=== PATIENT | female | born 1970 | race Caucasian/White ===

== ENCOUNTER 2017-11-03 14:07 | Emergency (ER) | payer OTHER ==
[~2017-11-03] VITALS: Ht 167.6 cm; Wt 145.2 kg
[~2017-11-03 14:07] MED LIST: AMOXICILLIN500 MG PO; HYDROCODON-ACE1 EAC8 PO; LO-OVRAL-281 EACH PO; NORCO 5-325 TA1 EACH PO; ZITHROMAX250 MG PO
[2017-11-03] MEDS ORDERED: LEVOTHYROXINE50 MCG PO (14:31)
[2017-11-03] MEDS ORDERED: CYCLOBENZAPRINE5 MG PO (16:43)
[2017-11-03] MEDS ORDERED: NORCO 5-325 TA1 EACH PO (16:43)
[2017-11-03] MEDS ORDERED: NAPROSYN500 MG PO (16:43)
[2017-11-03] MEDS ORDERED: NEURONTIN300 MG PO (16:43)
== END 2017-11-03 18:30 | disposition home or self-care (01) ==
LOC: ED 14:07
DX: M54.16 Radiculopathy, lumbar region (principal); E66.9 Obesity, unspecified; Z79.899 Other long term (current) drug therapy
CPT/HCPCS: 72100; 81001; 96372; 99283; J1885

== ENCOUNTER 2019-06-04 20:47 | Emergency (ER) | payer OTHER ==
[~2019-06-04] VITALS: Ht 167.6 cm; Wt 104.3 kg
[~2019-06-04 20:47] MED LIST changes: +CYCLOBENZAPRINE5 MG PO; +LEVOTHYROXINE50 MCG PO; +NAPROSYN500 MG PO; +NEURONTIN300 MG PO
[2019-06-04] MEDS ORDERED: LEVOTHYROXINE25 MCG PO (21:01)
[2019-06-04] MEDS ORDERED: OMEPRAZOLE20 MG PO (21:01)
[2019-06-04] MEDS ORDERED: TRAMADOL HCL50 MG PO (21:01)
[2019-06-04] MEDS ORDERED: SALSALATE500 MG PO (21:01)
[2019-06-04] MEDS ORDERED: CLINDAMYCIN HC300 MG PO (21:02)
[2019-06-05] MEDS ORDERED: BACTRIM DS TAB1 EACH PO (00:16)
[2019-06-05] MEDS ORDERED: CEPHALEXIN500 MG PO (00:16)
== END 2019-06-05 00:37 | disposition home or self-care (01) ==
LOC: ED 20:47
DX: L03.113 Cellulitis of right upper limb (principal); E03.9 Hypothyroidism, unspecified; F17.200 Nicotine dependence, unspecified, uncomplicated
CPT/HCPCS: 73130; 99283-25; A9270

== ENCOUNTER 2019-06-06 11:18 | Emergency (ER) | payer OTHER ==
[~2019-06-06] VITALS: Ht 167.6 cm; Wt 104.3 kg
[~2019-06-06 11:18] MED LIST changes: +BACTRIM DS TAB1 EACH PO; +CEPHALEXIN500 MG PO; +CLINDAMYCIN HC300 MG PO; +LEVOTHYROXINE25 MCG PO; +OMEPRAZOLE20 MG PO; +SALSALATE500 MG PO; +TRAMADOL HCL50 MG PO
--- OUTSIDE RECORDS SUMMARY | 2019-06-06 11:22 | XMS ---
PreManage Notification: BRONSON MARTÍNEZ Security Director Of Teaching And Learning Events No recent Security Events currently on file CRITERIA MET - [place] [facility] - 2 Visits in 30 Days CARE PROVIDERS There are no care providers on record at this time. Duncan has no Care Guidelines for this patient. Sanchez VISIT COUNT (12 MO.) 2 [facility] TOTAL 2 NOTE: Visits indicate total known visits. ED/C VISIT TRACKING (12 MO.) 06/06/2019 11:19 [facility] [place] TYPE: Emergency COMPLAINT: - R SWOLLEN HAND 06/04/2019 20:48 [facility] [place] TYPE: Emergency COMPLAINT: - RT SWOLLEN HAND INPATIENT VISIT TRACKING (12 MO.) No inpatient visits to display in this time frame [email or web address]
== END 2019-06-06 12:18 | disposition home or self-care (01) ==
LOC: ED 11:18
DX: L03.113 Cellulitis of right upper limb (principal); F17.200 Nicotine dependence, unspecified, uncomplicated; Z79.899 Other long term (current) drug therapy; Z79.891 Long term (current) use of opiate analgesic; E03.9 Hypothyroidism, unspecified; E66.9 Obesity, unspecified
CPT/HCPCS: 99283; A9270

== ENCOUNTER 2019-06-06 18:40 | Emergency (ER) | payer OTHER ==
[~2019-06-06] VITALS: Ht 167.6 cm; Wt 104.3 kg
--- OUTSIDE RECORDS SUMMARY | 2019-06-06 18:42 | XMS ---
PreManage Notification: BRONSON MARTÍNEZ Security Associate Art Director Events No recent Security Events currently on file CRITERIA MET - [facility] - 2 Visits in 30 Days CARE PROVIDERS There are no care providers on record at this time. Duncan has no Care Guidelines for this patient. [place] [facility] NOTE: Visits indicate total known visits. ED/C VISIT TRACKING (12 MO.) 06/06/2019 18:[facility] [place] TYPE: Emergency COMPLAINT: - VOMITING 06/06/2019 11:19 [facility] [place] TYPE: Emergency COMPLAINT: - R SWOLLEN HAND 06/04/2019 20:48 [facility] [place] TYPE: Emergency COMPLAINT: - RT SWOLLEN HAND INPATIENT VISIT TRACKING (12 MO.) No inpatient visits to display in this time frame [email or web address]
== END 2019-06-06 21:54 | disposition home or self-care (01) ==
LOC: ED 18:40
DX: L03.113 Cellulitis of right upper limb (principal); E66.9 Obesity, unspecified; E03.9 Hypothyroidism, unspecified; F17.200 Nicotine dependence, unspecified, uncomplicated; Z79.899 Other long term (current) drug therapy
CPT/HCPCS: 80053; 85025; 96365; 96366; 96375; 99283-25; J2405; J3370; J7060

== ENCOUNTER 2019-06-11 14:09 | Emergency (ER) | payer OTHER ==
[~2019-06-11] VITALS: Ht 167.6 cm; Wt 104.3 kg
--- OUTSIDE RECORDS SUMMARY | 2019-06-11 14:12 | XMS ---
PreManage Notification: BRONSON MARTÍNEZ Security Operations Research Group Manager Events No recent Security Events currently on file CRITERIA MET - [facility] - Has Care Guidelines - [facility] - 2 Visits in 30 Days CARE PROVIDERS BELTRAN DYER Physician Reliability Technician 06/07/2019-Current TRELL PHONE: [phone] Guidelines Source: [facility] [place] Guidelines Date: 06/09/2019 Care Coordination: Receiving mental health services with [facility].\T\nbsp; Please contact [facility] for mental health concerns.\T\nbsp; [place] office: \T\nbsp; [place] office: [phone]. Care History Medical/Surgical 06/07/2019 [facility] - PATIENT CURRENTLY RESIDING AT [facility] IS UNABLE TO CONTACT PATIENT. E.D. VISIT COUNT (12 MO.) 4 [facility] TOTAL 4 NOTE: Visits indicate total known visits. ED/UCC VISIT TRACKING (12 MO.) 06/11/2019 14:[address] [facility] [place] TYPE: Emergency COMPLAINT: - VOMITING 06/06/2019 18:[address] [facility] [place] TYPE: Emergency COMPLAINT: - VOMITING DIAGNOSES: - Cellulitis of right upper limb - Hypothyroidism, unspecified - Obesity, unspecified - Pain in right hand - Nicotine dependence, unspecified, uncomplicated - Other custodial (current) drug therapy 06/06/2019 11:19 [facility] [place] TYPE: Emergency COMPLAINT: - R SWOLLEN HAND DIAGNOSES: - Hypothyroidism, unspecified - long-term (current) use of opiate analgesic - Pain in right hand - Other custodial (current) drug therapy - Cellulitis of right upper limb - Nicotine dependence, unspecified, uncomplicated - Obesity, unspecified 06/04/2019 20:48 [facility] [place] TYPE: Emergency COMPLAINT: - RT SWOLLEN HAND DIAGNOSES: - Hypothyroidism, unspecified - Cellulitis of right upper limb - Other specified soft tissue disorders - Nicotine dependence, unspecified, uncomplicated INPATIENT VISIT TRACKING (12 MO.) No inpatient visits to display in this time frame [email or web address]
== END 2019-06-11 16:30 | disposition home or self-care (01) ==
LOC: ED 14:09
DX: K92.0 Hematemesis (principal); R04.0 Epistaxis; E66.9 Obesity, unspecified; E03.9 Hypothyroidism, unspecified; Z87.891 Personal history of nicotine dependence; Z79.899 Other long term (current) drug therapy
CPT/HCPCS: 71045; 80053; 85025; 85610; 85730; 86850; 86900; 86901; 96374; 96376; 99284-25; C9113; J7030; J7060

== ENCOUNTER 2019-06-27 09:00 | Day surgery (SDC) | payer OTHER ==
[~2019-06-27] VITALS: Ht 167.6 cm; Wt 131.1 kg
--- NOTE | ~2019-06-27 | OR ---
[facility] [address] [facility] [place], [place] [address] Draft DATE OF OPERATION: 06/27/2019 SURGEON: Herbert Eid MD PREOPERATIVE DIAGNOSIS: Abscess, dorsal aspect, right hand. POSTOPERATIVE DIAGNOSIS: Abscess, dorsal aspect, right hand. PROCEDURE PERFORMED: Incision and drainage. ANESTHESIA: General. SPECIMENS: No specimens. COMPLICATIONS: No complications. TOURNIQUET TIME: About 20 minutes. WHAT WAS DONE: The patient was taken to the operating room. After anesthesia was induced, the patient was positioned, prepped and draped in a routine sterile fashion. The arm was exsanguinated with elevation. Pneumatic tourniquet was inflated to 250 mmHg pressure. A small dorsal incision was made through skin only right through the area of maximum swelling. Skin was divided sharply. Subcutaneous tissue was bluntly spread. There was no purulence. There was a sort of a hard indurated area of subcu fat. This was excised sharply. Hemostasis was achieved with electrocautery. The wound was gently irrigated and closed in single layer. A sterile dressing applied. The patient was awakened in recovery room where she arrived in stable condition. Counts were correct and antibiotic protocols were followed. PATIENT NAME: BRONSON MARTÍNEZ OPERATIVE REPORT DATE OF : 68 REPORT #: [id number] PHYSICIAN: HERBERT EID MD PCP: BELTRAN DYER PA-C REPORT IS CONFIDENTIAL AND NOT TO BE RELEASED WITHOUT AUTHORIZATION [facility] [address] [place] [address] [place], [place] [address] Draft MD GENEVIEVE Melvin/MARITZA /[id number] Copies: ~ PATIENT NAME: BRONSON MARTÍNEZ OPERATIVE REPORT DATE OF : [birth year] REPORT #: [id number] PHYSICIAN: HERBERT EID MD PCP: BELTRAN DYER PA-C REPORT IS CONFIDENTIAL AND NOT TO BE RELEASED WITHOUT AUTHORIZATION
[~2019-06-27 09:00] MED LIST changes: +OMEPRAZOLE20 M1 PO
[2019-06-27] MEDS ORDERED: FLUOXETINE HCL20 MG PO (09:21)
--- NOTE | 2019-06-27 10:59 | NUR ---
06/27/19 1059 Kailyn Barnes 1029 PT ARRIVED IN PACU NON RESPONSIVE WITH OPA IN PLACE AND CHIN LIFT HELD BY RN. 1032 PT REACTIVE. OPA REMOVED. SITTING UP IN BED. 1040 R HAND ELEVATED AND ICE PLACED. 1055 C/O R HAND PAIN 11/23. EATING SALTINES AND SIPPING ON WATER. TRAMADOL 100MG GIVEN PO FOR PAIN CONTROL.
[2019-06-27] MEDS ORDERED: ULTRAM50 MG PO (11:42)
--- NOTE | 2019-06-27 12:42 | NUR ---
1130: CHECKED ON PATIENT. PATIENT STATES DOING WELL. NO NEEDS AT THIS TIME. CALL LIGHT WITHIN REACH. 1205: VS CHECKED. DISCHARGE INSTRUCTIONS GIVEN TO PATIENT. ASSISTED PATIENT OOB AND TO WALK AROUND ROOM. GAIT STEADY. IV DC'D WNL. TIP INTACT. DRESSING APPLIED AFTER BLEEDING STOPPED. PATIENT GETTING DRESSED. 1215: PATIENT'S RIDE CALLED. RIDE SAID SHE WOULD BE HERE AT 1315 TO PICK PATIENT UP. 1220: LUNCH ORDERED FOR PATIENT. 1225: PATIENT SAID SHE TALKED TO HER RIDE AND HER RIDE SAID IT WAS OK FOR HER TO GET A RIDE TO [facility] BY HER PARENTS. 1235: PATIENT'S LUNCH PACKAGED UP FOR HER TO TAKE IT TO GO. PATIENT DISCHARGED TO [facility] WITH HER PARENTS VIA WHEELCHAIR.
== END 2019-06-27 12:35 | disposition home or self-care (01) ==
LOC: DS 09:00
PROVIDERS: Orthopaedic Surgery
PROC: 0J9J0ZZ Drainage of Right Hand Subcutaneous Tissue and Fascia, Open Approach (ICD-10-PCS; principal; 2019-06-27 10:00)
DX: L02.511 Cutaneous abscess of right hand (principal); E03.9 Hypothyroidism, unspecified; F41.0 Panic disorder [episodic paroxysmal anxiety]; F32.9 Major depressive disorder, single episode, unspecified; I10 Essential (primary) hypertension; Z79.899 Other long term (current) drug therapy
CPT/HCPCS: J0690; J1100; J1885; J2001; J2250; J2405; J2704; J7121

== ENCOUNTER 2020-09-27 06:20 | Day surgery (SDC) | payer OTHER ==
[~2020-09-27] VITALS: Ht 170.2 cm; Wt 169.0 kg
[~2020-09-27 06:20] MED LIST changes: +EXCEDRIN MIGRA1 EAC2 PO; +FLUOXETINE HCL20 MG PO; +ULTRAM50 MG PO; +VALIUM5 MG PO
--- NOTE | 2020-09-27 07:10 | NUR ---
bp rechecked for 3rd time 165/107 p 89. this reported to ericka solomon
--- NOTE | 2020-09-27 08:01 | NUR ---
09/27/20 0801 Cristel Bowden 0756: PT ARRIVES TO PACU VIA STRETCHER FOR RECOVERY. AWAKE AND ALERT. DENIES PAIN AND NAUSEA. VSS, RESP EVEN AND UNLABORED. O2 SAT STABLE >97% ON 6L VIA NC
--- NOTE | 2020-09-27 15:45 | OR ---
[facility] [address] [place], [place] [address] Signed DATE OF OPERATION: 09/27/2020 SURGEON: Daily Lopez MD PREOPERATIVE DIAGNOSES: 1. Obesity (body mass index 59). 2. Gastroesophageal reflux disease. 3. History of H pylori (April 2020). 4. Screening. 5. Change in bowel habits with diarrhea. POSTOPERATIVE DIAGNOSES: 1. Mild to moderate gastroduodenitis. 2. Small hiatal hernia. 3. Minimal sigmoid diverticulosis. 4. 5 mm polyp at 9 and 10 cm. PROCEDURE: 1. EGD with CLOtest and biopsies of the bulb and antrum. 2. Colonoscopy with hot biopsy. ESTIMATED BLOOD LOSS: None. INDICATIONS: She is a 50-year-old female with a body mass index of 59. She is undergoing evaluation at [facility] for consideration of a gastric sleeve procedure. She has been asked to see me for both upper and lower endoscopy. She talks about acid reflux. She was positive for H pylori in April 2020. Apparently, she failed clarithromycin, amoxicillin and omeprazole therapy. Initially, she came in need of a screening colonoscopy as well. However, she had a change in bowel habits about two weeks prior to seeing me. She was having severe diarrhea. She has no family history of colon cancer or polyps. There is no family history of inflammatory bowel disease. In the office, I gave Bronson a pamphlet on both upper and lower endoscopy. She understands the nature of the two tests. There is risk including, but not limited to gas bloating, crampy abdominal pain, bleeding, perforation requiring surgery, and missed diagnosis. Also based on her body habitus, a very full face, neck and chest and abdomen along with her need for CPAP, we asked an anesthesia provider to help us with increased monitoring and sedation with propofol. She had expressed understanding and wished to proceed. Electronically Signed By: DAILY LOPEZ MD 09/27/20 0669 PATIENT NAME: BRONSON MARTÍNEZ OPERATIVE REPORT DATE OF : [birth year] REPORT #: [id number] PHYSICIAN: DAILY LOPEZ MD PCP: BELTRAN DYER PA-C REPORT IS CONFIDENTIAL AND NOT TO BE RELEASED WITHOUT AUTHORIZATION [facility] [address] [place], [place] [address] Signed PROCEDURE NOTE: Bronson was taken in to our endoscopy suite and placed in the supine semi-recumbent position. We noticed her hypertension in our preop area. She might review that with her primary care provider. In my office, she was 170/98. She was similar here in our preop area. The posterior oropharynx was anesthetized with lidocaine spray. A bite block was utilized for the case. She was given IV sedation per nurse advertising supervisor with propofol. The adult gastroscope was introduced and advanced out in the third portion of the duodenum under direct visualization of camera without difficulty. The duodenum was unremarkable. She had some mild inflammatory changes in the pyloric bulb as well as throughout the stomach. Therefore, we took biopsies from the pyloric bulb as well as the antrum for pathologic review. Additional biopsy was taken of the antrum for CLOtest. Upon retroflexion of scope, we had a difficult time getting a good view of her cardia despite large amounts of insufflation. She appears to have a small hiatal hernia. We really could not significantly measure out hiatal hernia because of her inability to adequately insufflate the stomach due to her body mass index. We found her GE junction down around 36 cm. She has mild disruption to the Z-line, but no Woodard's mucosa. There was no distal esophagitis. The middle and upper esophagus were unremarkable. After this, the gas was suctioned out and the gastroscope removed. Bronson tolerated the procedure quite well. Bronson was then rotated into the left lateral decubitus position. She was maintained on IV sedation with the propofol. A digital rectal exam was performed and this was unremarkable. The adult colonoscope was introduced and advanced all around into the cecum under direct visualization of camera without difficulty. Her prep was moderate. In the future, she should utilize a double bowel prep. She had a fair amount of pasty stool in the cecum over the ileocecal valve. She had several other areas that were similar that we simply could not suction through the scope. The scope was then slowly withdrawn. We found diverticula in the sigmoid colon. They were minimal to moderate in size, few in number, and scattered about. The rectum had two small polyps next to one another easily removed with a hot biopsy forceps at 9 and 10 cm. Upon retroflexion of scope, there was no additional pathology noted above the anal canal. After this, the gas was suctioned out and colonoscope removed. Bronson tolerated the procedure quite well. RECOMMENDATIONS: I will see Bronson back in my office in 7 to 14 days to review her results. She could consider a barium swallow to better delineate the hiatal hernia. However it appears to be quite small. It should not interfere with her gastric sleeve procedure. Electronically Signed By: DAILY LOPEZ MD 09/27/20 4384 PATIENT NAME: BRONSON MARTÍNEZ OPERATIVE REPORT DATE OF : [birth year] REPORT #: [id number] PHYSICIAN: DAILY LOPEZ MD PCP: BELTRAN DYER PA-C REPORT IS CONFIDENTIAL AND NOT TO BE RELEASED WITHOUT AUTHORIZATION [address] [place], [place] [address] Signed Daily Lopez MD [facility] /[id number] cc: VASYL Tirado MD Copies: DAILY LOPEZ MD ~ Electronically Signed By: DAILY LOPEZ MD 09/27/20 1545 PATIENT NAME: BRONSON MARTÍNEZ OPERATIVE REPORT DATE OF : [birth year] REPORT #: [id number] PHYSICIAN: DAILY LOPEZ MD PCP: BELTRAN DYER PA-C REPORT IS CONFIDENTIAL AND NOT TO BE RELEASED WITHOUT AUTHORIZATION
--- NOTE | 2020-09-30 17:00 | PATH ---
[facility] [address] [place], [place] [address] Signed SPECIMEN(S): A DUODENAL BULB SPECIMEN(S): B ANTRUM/PYLORUS SPECIMEN(S): C RECTAL POLYP 10 CM SPECIMEN SOURCE: A. DUODENAL BULB B. ANTRUM/PYLORUS C. RECTAL POLYP 10 CM CLINICAL HISTORY: Esophagogastroduodenoscopy/colonoscopy. History of H. pylori, GERD, diarrhea. Postop Dx: Gastroduodenitis, diverticulosis, rectal polyp. MICROSCOPIC DESCRIPTION: Histologic sections of all submitted blocks are examined by light microscopy. These findings, together with the gross examination, support the pathologic diagnosis. FINAL PATHOLOGIC DIAGNOSIS: A. Duodenum bulb, biopsy: - Duodenal bulb type mucosa with no histopathologic abnormality. - Negative for increased intraepithelial lymphocytes or villous blunting. - Negative for dysplasia or malignancy. B. Stomach, antrum/pylorus, biopsy: - Antral mucosa with chronic, inactive gastritis. - Positive for Helicobacter organisms (HE and IHC). - Negative for dysplasia or malignancy. C. Rectum, polyp at 10 cm, polypectomy: - Fragments of hyperplastic polyp. - Negative for dysplasia or malignancy. COMMENT: Regarding specimen B: An H. pylori immunohistochemical stain (with appropriately staining controls) is positive for Helicobacter organisms. NAL:cml:C2NR GROSS DESCRIPTION: Three specimens are received in three containers, labeled "KG." A. The specimen, labeled "KG, duodenum bulb biopsy," is received in formalin and consists of one ly soft tissue fragment that measures 0.2 cm in greatest dimension. The specimen is entirely submitted in cassette (A1). PATIENT NAME: BRONSON MARTÍNEZ PATHOLOGY DATE OF : 68 REPORT #: [id number] PHYSICIAN: ALE HALL PCP: BELTRAN DYER PA-C REPORT IS CONFIDENTIAL AND NOT TO BE RELEASED WITHOUT AUTHORIZATION [facility] [address] [place], [place] [address] Signed B. The specimen, labeled "KG, antrum biopsy," is received in formalin and consists of one ly soft tissue fragment that measures 0.3 cm in greatest dimension. The specimen is entirely submitted in cassette (B1). C. The specimen, labeled "KG, rectal polyp at 10 cm," is received in formalin and consists of three ly soft tissue fragments that measure 0.2 cm in greatest dimension. The specimen is entirely submitted in cassette (C1). JS (under the direct supervision of a pathologist) The Gross Description was prepared using a voice recognition system. The report was reviewed for accuracy; however, sound-alike word errors, addition and/or deletions may occur. If there is any question about this report, please contact Client Services. ADDITIONAL NOTES: Immunohistochemical and/or in situ hybridization studies were performed on this case with the appropriate positive controls that react as expected. This test was developed and its performance characteristics determined by [facility]. It has not been cleared or approved by the U.S. Food and Drug Administration. The FDA has determined that such clearance or approval is not necessary. This test is used for clinical purposes. It should not be regarded as investigational or for research. [facility] is certified under the Clinical Laboratory Improvement Amendments of 1988 (CLIA) as qualified to perform high complexity clinical laboratory testing. This assay has not been validated for specimens that have been decalcified. PERFORMING LABORATORY: The technical component was performed by [facility], [address] [place] [id number] (Black Leather Trimmer: Leila Quiñonez MD; CLIA# [id number]). Professional interpretation was performed by [facility], [address] [place], [place] [address] (CLIA# [id number]). Diagnostician: Anat Perez MD Pathologist Electronically Signed 09/30/2020 Copies: PATIENT NAME: BRONSON MARTÍNEZ PATHOLOGY DATE OF : 68 REPORT #: [id number] PHYSICIAN: ALE PATHOLOGY PCP: BELTRAN DYER PA-C REPORT IS CONFIDENTIAL AND NOT TO BE RELEASED WITHOUT AUTHORIZATION [facility] [address] [facility] [place], [place] [address] Signed ~ PATIENT NAME: BRONSON MARTÍNEZ PATHOLOGY DATE OF : 68 REPORT #: [id number] PHYSICIAN: ALE PATHOLOGY PCP: BELTRAN DYER PA-C REPORT IS CONFIDENTIAL AND NOT TO BE RELEASED WITHOUT AUTHORIZATION
== END 2020-09-27 08:36 | disposition home or self-care (01) ==
LOC: OPS 06:20 → DS 06:20 → OPS 06:45 → DS 06:45 → OPS 08:36
PROVIDERS: ATTEND Colon & Rectal Surgery
PROC: 0DBP8ZX Excision of Rectum, Via Natural or Artificial Opening Endoscopic, Diagnostic (ICD-10-PCS; 2020-09-27)
PROC: 0DB78ZX Excision of Stomach, Pylorus, Via Natural or Artificial Opening Endoscopic, Diagnostic (ICD-10-PCS; principal; 2020-09-27 06:45)
PROC: 0DB98ZX Excision of Duodenum, Via Natural or Artificial Opening Endoscopic, Diagnostic (ICD-10-PCS; 2020-09-27 06:45)
DX: K29.90 Gastroduodenitis, unspecified, without bleeding (principal); K62.1 Rectal polyp; K44.9 Diaphragmatic hernia without obstruction or gangrene; K57.30 Diverticulosis of large intestine without perforation or abscess without bleeding; E66.01 Morbid (severe) obesity due to excess calories; Z68.43 Body mass index [BMI] 50.0-59.9, adult; K21.9 Gastro-esophageal reflux disease without esophagitis; E03.9 Hypothyroidism, unspecified; G43.909 Migraine, unspecified, not intractable, without status migrainosus; I10 Essential (primary) hypertension; G47.33 Obstructive sleep apnea (adult) (pediatric); M19.90 Unspecified osteoarthritis, unspecified site; B96.81 Helicobacter pylori [H. pylori] as the cause of diseases classified elsewhere; M81.0 Age-related osteoporosis without current pathological fracture; Z87.891 Personal history of nicotine dependence
CPT/HCPCS: 86677; J2704; J7121

== ENCOUNTER 2020-11-06 11:58 | Emergency (ER) | payer OTHER ==
[~2020-11-06] VITALS: Ht 170.2 cm; Wt 168.7 kg
[2020-11-06] MEDS ORDERED: CLARITHROMYCIN500 MG PO (12:20)
[2020-11-06] MEDS ORDERED: AMOXICILLIN500 MG PO (12:20)
--- OUTSIDE RECORDS SUMMARY | 2020-11-06 12:32 | XMS ---
PreManage Notification: BRONSON MARTÍNEZ Security Relay Operator Events No recent Security Events currently on file CRITERIA MET - [facility] - Has Care Guidelines CARE PROVIDERS BELTRAN DYER Physician Transmission And Coordination Engineer 06/07/2019-Current PHONE: [phone] Guidelines Source: [facility] Guidelines Date: 06/09/2019 Care Coordination: Receiving mental health services with [facility].\T\nbsp; Please contact [facility] for mental health concerns.\T\nbsp; [place] office: [phone]\T\nbsp; [place] office: [phone]. Care History Medical/Surgical 06/07/2019 [facility] - PATIENT CURRENTLY RESIDING AT [facility]- [facility] IS UNABLE TO CONTACT PATIENT. E.D. VISIT COUNT (12 MO.) 1 [facility] TOTAL 1 NOTE: Visits indicate total known visits. ED/UCC VISIT TRACKING (12 MO.) 11/06/2020 11:[address] [facility] [place] TYPE: Emergency COMPLAINT: - L EAR PAIN, PRESSURE, FACIAL SWELLING, HEADACHE INPATIENT VISIT TRACKING (12 MO.) No inpatient visits to display in this time frame [email or web address]
== END 2020-11-06 13:47 | disposition home or self-care (01) ==
LOC: ED 11:58
DX: H61.22 Impacted cerumen, left ear (principal); E66.9 Obesity, unspecified; Z87.891 Personal history of nicotine dependence; Z79.899 Other long term (current) drug therapy
CPT/HCPCS: 99282

== ENCOUNTER 2021-10-02 20:36 | Emergency (ER) | payer OTHER ==
[~2021-10-02] VITALS: Ht 170.2 cm; Wt 156.0 kg
[~2021-10-02 20:36] MED LIST changes: +CLARITHROMYCIN500 MG PO
--- OUTSIDE RECORDS SUMMARY | 2021-10-02 20:40 | XMS ---
PreManage Notification: BRONSON MARTÍNEZ Security Laundry Washer Events No recent Security Events currently on file [facility] MET [facility] Rosanna Lee-C Nurse Practitioner: Family Current PHONE: [phone] Care Guidelines exist for the following facilities: [facility] ( 06/09/2019 ) Care History Medical/Surgical 06/07/2019 [facility] - PATIENT CURRENTLY RESIDING AT [facility]- [facility] IS UNABLE TO CONTACT PATIENT. E.D. VISIT COUNT (12 MO.) 2 [facility] TOTAL 2 NOTE: Visits indicate total known visits. ED/UCC VISIT TRACKING (12 MO.) 10/02/2021 20:[address] [facility] [place] TYPE: Emergency COMPLAINT: - FLU SYMPTOMS, FEVER 11/06/2020 11:[address] [facility] [address] [facility] [place] TYPE: Emergency COMPLAINT: - L EAR PAIN, PRESSURE, FACIAL SWELLING, HEADACHE DIAGNOSES: - Headache, unspecified - Obesity, unspecified - Other tank terminal gauger (current) drug therapy - Impacted cerumen, left ear - Personal history of nicotine dependence INPATIENT VISIT TRACKING (12 MO.) 06/30/2021 10:20 [facility] DIAGNOSES: - Other specified disorders of kidney and ureter [email or web address]
[2021-10-02] MEDS ORDERED: ALLOPURINOL100 MG PO (22:18)
[2021-10-02] MEDS ORDERED: FLUCONAZOLE150 MG PO (22:18)
[2021-10-02] MEDS ORDERED: VITAMIN D31250 MC1 PO (22:18)
[2021-10-02] MEDS ORDERED: JARDIANCE10 MG PO (22:18)
[2021-10-02] MEDS ORDERED: FAMOTIDINE20 MG PO (22:18)
[2021-10-03] MEDS ORDERED: PAXLOVID CO-PA1 EAC1 PO (01:16)
--- NOTE | 2021-10-05 08:57 | EKG ---
[facility] [address] [facility] [place] [address] Signed Normal sinus rhythm Nonspecific T wave abnormality Abnormal ECG When compared with ECG of 18-SEP-2020 09:49, Nonspecific T wave abnormality now evident in Anterior leads Confirmed by ETTA PEARL MD ([id number]) on 10/05/2021 8:57:05 AM Electronically Signed By: ETTA PEARL MD 10/05/21 0857 PATIENT NAME: BRONSON MARTÍNEZ Electrocardiogram DATE OF : 68 PHYSICIAN: ETTA PEARL MD REPORT #: [id number] REPORT IS CONFIDENTIAL AND NOT TO BE RELEASED WITHOUT AUTHORIZATION
== END 2021-10-03 01:41 | disposition home or self-care (01) ==
LOC: ED 20:36
DX: U07.1 COVID-19 (principal); N17.9 Acute kidney failure, unspecified; R74.01 Elevation of levels of liver transaminase levels; E66.9 Obesity, unspecified; E03.9 Hypothyroidism, unspecified; E11.40 Type 2 diabetes mellitus with diabetic neuropathy, unspecified; Z87.891 Personal history of nicotine dependence; Z79.899 Other long term (current) drug therapy
CPT/HCPCS: 36415; 71045; 80053; 81001; 83605; 85025; 87502; 93005; 93010; 96374; 99284-25; A9270; C9803; J2405; U0003

== ENCOUNTER 2022-02-04 03:46 | Emergency (ER) | payer OTHER ==
[~2022-02-04] VITALS: Ht 165.1 cm; Wt 145.2 kg
[~2022-02-04 03:46] MED LIST changes: +ALLOPURINOL100 MG PO; +FAMOTIDINE20 MG PO; +FLUCONAZOLE150 MG PO; +JARDIANCE10 MG PO; +PAXLOVID CO-PA1 EAC1 PO; +REGLAN10 MG PO; +VITAMIN D31250 MC1 PO
--- OUTSIDE RECORDS SUMMARY | 2022-02-04 03:48 | XMS ---
PreManage Notification: BRONSON MARTÍNEZ Security Dyeing Machine Tender Events 1 event(s) in the past 18 months Most recent security events: Elopement at [facility] 10/03/2021 11:35 - Patient eloped before treatment completed. - Patient with suicidal and/or homicidal ideations eloped. - Patient eloped with IV in place. Details: PATIENT LWBS CRITERIA MET - [facility] - 3 Facilities in 90 Days - PDMP - [facility] - 2 Visits in 30 Days - 6 ED Visits in 6 Months CARE PROVIDERS Rosanna Lee Nurse Practitioner: Family Current PHONE: [phone] Care Guidelines exist for the following facilities: [facility] ( 06/09/2019 ) Care History Medical/Surgical 06/07/2019 [facility] - PATIENT CURRENTLY RESIDING AT [facility]- CHW IS UNABLE TO CONTACT PATIENT. E.D. VISIT COUNT (12 MO.) 1 [facility] [address] 6 SHAILESH Thompson TOTAL 11 NOTE: Visits indicate total known visits. ED/UCC VISIT TRACKING (12 MO.) 02/04/2022 03:47 SHAILESH Kelly TYPE: Emergency COMPLAINT: - MEDICATION ISSUE 02/03/2022 12:45 [facility] TYPE: Emergency DIAGNOSES: - Shortness of Breath 02/02/2022 10:07 [facility] [place] [facility] COMPLAINT: - VOMITING, LETHARGIC, SOB 02/01/2022 11:50 [facility] [place] TYPE: Emergency DIAGNOSES: - Other fatigue - dofficulty breathing 01/31/2022 11:[facility] DIAGNOSES: - Emesis - Shortness of Breath - Vomiting, unspecified - Cough, unspecified - poss septic - Adenovirus infection, unspecified 01/26/2022 20:57 [facility] DIAGNOSES: - Other intervertebral disc degeneration, lumbar region - Nausea - Emesis - Malignant neoplasm of left kidney, except renal pelvis - Dependence on other enabling machines and devices - Right lower quadrant pain - Obstructive sleep apnea (adult) (pediatric) - Sepsis, unspecified organism - Acute kidney failure, unspecified - Fever, unspecified 01/26/2022 14:56 [facility] TYPE: Emergency DIAGNOSES: - Emesis - Nausea - Diarrhea (Adult) - Dehydration 01/21/2022 16:44 SHAILESH Hernandez [place] TYPE: Emergency COMPLAINT: - VOMITING DIAGNOSES: - Unspecified osteoarthritis, unspecified site - Personal history of nicotine dependence - Other usp (current) drug therapy - Obesity, unspecified - Nausea with vomiting, unspecified - Hypothyroidism, unspecified 01/14/2022 15:53 SHAILESH Hernandez [place] TYPE: Emergency COMPLAINT: - LETHARGIC DIAGNOSES: - Unspecified abdominal pain - Dehydration - Hypothyroidism, unspecified - Personal history of nicotine dependence - Polyneuropathy, unspecified - Personal history of other malignant neoplasm of kidney - Diarrhea, unspecified 10/03/2021 11:35 SHAILESH Hernandez [place] TYPE: Emergency COMPLAINT: - ABD PAIN, LOWER BACK PAIN 10/02/2021 20:38 SHALIESH Kelly TYPE: Emergency COMPLAINT: - FLU SYMPTOMS, FEVER DIAGNOSES: - Hypothyroidism, unspecified - Fever, unspecified - Other usp (current) drug therapy - Personal history of nicotine dependence - Acute kidney failure, unspecified - Obesity, unspecified - COVID-19 - Elevation of levels of liver transaminase levels - Type 2 diabetes mellitus with diabetic neuropathy, unspecified INPATIENT VISIT TRACKING (12 MO.) 01/26/2022 20:57 [facility] Roshan WILSON TYPE: Internal Medicine DIAGNOSES: - Malignant neoplasm of left kidney, except renal pelvis - Obstructive sleep apnea (adult) (pediatric) - Lumbago with sciatica, right side - Acute kidney failure, unspecified - Right lower quadrant pain - Fever, unspecified - Other intervertebral disc degeneration, lumbar region - Lumbago with sciatica, left side - Dependence on other enabling machines and devices - Other chronic pain - Sepsis, unspecified organism 06/30/2021 10:20 [facility] Roshan WILSON TYPE: Surgery DIAGNOSES: - Other specified disorders of kidney and ureter [email or web address]
[2022-02-04] MEDS ORDERED: DIFLUCAN150 MG PO (07:45)
[2022-02-04] MEDS ORDERED: NYSTATIN100000 UN1 PO (07:50)
[2022-02-04] MEDS ORDERED: BACTRIM DS TAB1 EACH PO (07:53)
--- NOTE | 2022-02-05 20:03 | EKG ---
[facility] [address] [place] [address] Signed Normal sinus rhythm Low voltage QRS Nonspecific ST and T wave abnormality Prolonged QT Abnormal ECG When compared with ECG of 02-OCT-2021 23:49, QT has lengthened Confirmed by Sidney Cohen MD () on 02/05/2022 8:03:08 PM Electronically Signed By: SIDNEY COHEN MD 02/05/222002 PATIENT NAME: BRONSON MARTÍNEZ Electrocardiogram DATE OF : 68 PHYSICIAN: SIDNEY COHEN MD REPORT #: [id number] REPORT IS CONFIDENTIAL AND NOT TO BE RELEASED WITHOUT AUTHORIZATION
== END 2022-02-04 08:01 | disposition home or self-care (01) ==
LOC: ED 03:46
DX: B37.3 Candidiasis of vulva and vagina (principal); E66.9 Obesity, unspecified; E03.9 Hypothyroidism, unspecified; R73.03 Prediabetes; Z20.822 Contact with and (suspected) exposure to COVID-19; Z87.891 Personal history of nicotine dependence; Z79.899 Other long term (current) drug therapy
CPT/HCPCS: 36415; 71045; 80053; 81001; 83605; 83880; 84484; 85025; 87088; 87502; 93005; 93010; 96374; 99285-25; A9270; J1200; J7121; U0003

== ENCOUNTER 2022-02-12 12:42 | Emergency (ER) | payer OTHER ==
[~2022-02-12] VITALS: Ht 165.1 cm; Wt 147.8 kg
[~2022-02-12 12:42] MED LIST changes: +DIFLUCAN150 MG PO; +NYSTATIN100000 UN1 PO
--- OUTSIDE RECORDS SUMMARY | 2022-02-12 12:44 | XMS ---
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 - Patient with suicidal and/or homicidal ideations eloped. - Patient eloped with IV in place. Details: PATIENT LWBS CRITERIA MET - 6 ED Visits in 6 Months - PDMP - [facility] - 2 Visits in 30 Days - [facility] - 3 Facilities in 90 Days CARE PROVIDERS Rosanna Lee Nurse Practitioner: Family Current PHONE: [phone] Care Guidelines exist for the following facilities: [facility] ( 06/09/2019 ) Care History Medical/Surgical 06/07/2019 [facility] - PATIENT CURRENTLY RESIDING AT [facility]- CHW IS UNABLE TO CONTACT PATIENT. E.D. VISIT COUNT (12 MO.) 1 [facility] 3 [facility] 1 [facility] 2 Geoffrey Gutierrez 1 [facility] 8 SHAILESH Thompson TOTAL 16 NOTE: Visits indicate total known visits. ED/UCC VISIT TRACKING (12 MO.) 02/12/2022 12:42 SHAILESH Hernandez [place] TYPE: Emergency COMPLAINT: - SEPSIS 02/10/2022 11:49 Geoffrey LeyvaKarl BORGES [place] TYPE: Emergency DIAGNOSES: - Hypokalemia - Pediculosis due to Pediculus humanus capitis - Difficulty Breathing - Urinary tract infection, site not specified - Followup Medical Problem - Morbid (severe) obesity with alveolar hypoventilation 02/08/2022 12:28 Geoffrey Ronbrenda AutumnKarl [place] TYPE: Emergency DIAGNOSES: - Adult failure to thrive - Candidiasis, unspecified - Disorder of kidney and ureter, unspecified - Weakness - Difficulty Breathing - Other specified personal risk factors, not elsewhere classified - Hypokalemia - Shortness of Breath 02/06/2022 15:[address] [facility] [address] [facility] Stephen[facility] [place] TYPE: Emergency COMPLAINT: - NAUSEA/VOMITING 02/05/2022 16:09 [facility] DIAGNOSES: [id number]. SOB [id number]. Acute upper respiratory infection, unspecified 02/04/2022 03:47 SHAILESH Hernandez [place] TYPE: Emergency COMPLAINT: - MEDICATION ISSUE DIAGNOSES: - Prediabetes - Contact with and (suspected) exposure to COVID-19 - Shortness of breath - Obesity, unspecified - Other senior care (current) drug therapy - Candidiasis of vulva and vagina - Hypothyroidism, unspecified - Personal history of nicotine dependence 02/03/2022 12:45 [facility] TYPE: Emergency DIAGNOSES: - Shortness of Breath 02/02/2022 10:07 SHAILESH Kelly TYPE: Emergency COMPLAINT: - VOMITING, LETHARGIC, SOB 02/01/2022 11:50 [facility] [place] TYPE: Emergency DIAGNOSES: - Other fatigue - dofficulty breathing 01/31/2022 11:33 [facility]: [facility] DIAGNOSES: - Vomiting, unspecified - Cough, unspecified - poss septic - Adenovirus infection, unspecified - Emesis - Shortness of Breath 01/26/2022 20:57 [facility] TYPE: Emergency DIAGNOSES: - Dependence on other enabling machines and devices - Right lower quadrant pain - Obstructive sleep apnea (adult) (pediatric) - Sepsis, unspecified organism - Acute kidney failure, unspecified - Fever, unspecified - Other intervertebral disc degeneration, lumbar region - Nausea - Emesis - Malignant neoplasm of left kidney, except renal pelvis 01/26/2022 14:56 [facility] TYPE: Emergency DIAGNOSES: - Nausea - Diarrhea (Adult) - Dehydration - Emesis 01/21/2022 16:44 SHAILESH Lozada HKarl Stephenson [place] TYPE: Emergency COMPLAINT: - VOMITING DIAGNOSES: - Other watermaster (current) drug therapy - Obesity, unspecified - Nausea with vomiting, unspecified - Hypothyroidism, unspecified - Unspecified osteoarthritis, unspecified site - Personal history of nicotine dependence 01/14/2022 15:53 [facility] [place] HKarl Stephen[place] TYPE: Emergency COMPLAINT: - LETHARGIC DIAGNOSES: - Personal history of nicotine dependence - Polyneuropathy, unspecified - Personal history of other malignant neoplasm of kidney - Diarrhea, unspecified - Unspecified abdominal pain - Dehydration - Hypothyroidism, unspecified 10/03/2021 11:35 [facility] [place] HKarl Stephen[place] TYPE: Emergency COMPLAINT: - ABD PAIN, LOWER BACK PAIN 10/02/2021 20:38 [facility] [place] HKarl Stephenson [place] TYPE: Emergency COMPLAINT: - FLU SYMPTOMS, FEVER DIAGNOSES: - Personal history of nicotine dependence - Acute kidney failure, unspecified - Obesity, unspecified - COVID-19 - Elevation of levels of liver transaminase levels - Type 2 diabetes mellitus with diabetic neuropathy, unspecified - Hypothyroidism, unspecified - Fever, unspecified - Other senior care (current) drug therapy INPATIENT VISIT TRACKING (12 MO.) 02/08/2022 12:28 Geoffrey [place] TYPE: General Medicine DIAGNOSES: - Weakness - Hypokalemia - Other specified personal risk factors, not elsewhere classified - Candidiasis, unspecified - Disorder of kidney and ureter, unspecified - Acute cystitis without hematuria - Adult failure to thrive 02/06/2022 15:35 SHAILESH Hernandez [place] TYPE: Observation COMPLAINT: - ACUTE KIDNEY INJURY DIAGNOSES: - Malignant neoplasm of unspecified kidney, except renal pelvis - Acute kidney failure, unspecified - Hypothyroidism, unspecified - Chronic kidney disease, unspecified - Hypokalemia - Contact with and (suspected) exposure to COVID-19 - Obstructive sleep apnea (adult) (pediatric) - Personal history of nicotine dependence - Diarrhea, unspecified - Type 2 diabetes mellitus with diabetic chronic kidney disease - Urinary tract infection, site not specified - Candidal stomatitis - Obesity, unspecified - Acquired absence of kidney - Migraine, unspecified, not intractable, without status migrainosus 01/26/2022 20:57 [facility] Roshan WILSON TYPE: Internal Medicine DIAGNOSES: - Right lower quadrant pain - Fever, unspecified - Other intervertebral disc degeneration, lumbar region - Lumbago with sciatica, left side - Dependence on other enabling machines and devices - Other chronic pain - Sepsis, unspecified organism - Malignant neoplasm of left kidney, except renal pelvis - Obstructive sleep apnea (adult) (pediatric) - Lumbago with sciatica, right side - Acute kidney failure, unspecified 06/30/2021 10:20 [facility] Roshan WILSON TYPE: Surgery DIAGNOSES: - Other specified disorders of kidney and ureter [email or web address]
--- NOTE | 2022-02-13 00:01 | EKG ---
[facility] [address] [place] [address] Signed Normal sinus rhythm Low voltage QRS Nonspecific ST and T wave abnormality Abnormal ECG When compared with ECG of 04-FEB-2022 04:03, Nonspecific T wave abnormality has replaced inverted T waves in Inferior leads Confirmed by GAVIN POSADA MD ([id number]) on 02/13/2022 12:00:55 AM Electronically Signed By: GAVIN POSADA MD 02/13/22 0001 PATIENT NAME: BRONSON MARTÍNEZ Electrocardiogram DATE OF : 68 PHYSICIAN: GAVIN POSADA MD REPORT #: [id number] REPORT IS CONFIDENTIAL AND NOT TO BE RELEASED WITHOUT AUTHORIZATION
== END 2022-02-12 17:06 | disposition home or self-care (01) ==
LOC: ED 12:42
DX: R53.1 Weakness (principal); Z20.822 Contact with and (suspected) exposure to COVID-19; E66.9 Obesity, unspecified; E03.9 Hypothyroidism, unspecified; M19.90 Unspecified osteoarthritis, unspecified site; Z87.891 Personal history of nicotine dependence; Z79.899 Other long term (current) drug therapy
CPT/HCPCS: 36415; 51701; 71045; 80053; 81001; 83605; 85025; 85610; 85730; 87040; 87502; 93005; 93010; 97161; 99285-25; A9270; C9803; U0003

== ENCOUNTER 2022-02-16 10:08 | Emergency (ER) | payer OTHER ==
[~2022-02-16] VITALS: Ht 165.1 cm; Wt 148.1 kg
--- OUTSIDE RECORDS SUMMARY | 2022-02-16 10:12 | XMS ---
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 - Patient with suicidal and/or homicidal ideations eloped. - Patient eloped with IV in place. Details: PATIENT LWBS CRITERIA MET - 6 ED Visits in 6 Months - [facility] - 2 Visits in 30 Days - PDMP - [facility] - 3 Facilities in 90 Days CARE PROVIDERS Rosanna Lee Nurse Practitioner: Family Current PHONE: [phone] Care Guidelines exist for the following facilities: [facility] ( 06/09/2019 ) Care History Medical/Surgical 06/07/2019 [facility] - PATIENT CURRENTLY RESIDING AT [facility]- [facility]W IS UNABLE TO CONTACT PATIENT. E.D. VISIT COUNT (12 MO.) 1 [facility] 3 [facility] 1 [facility] 2 Geoffrey Winslow Karl 1 [facility] 9 SHAILESH Thompson TOTAL 17 NOTE: Visits indicate total known visits. ED/C VISIT TRACKING (12 MO.) 02/16/2022 10:10 SHAILESH Hernandez [place] TYPE: Emergency COMPLAINT: - DIFFICULTY BREATHING, WEAK, UNABLE TO STAND 02/12/2022 12:42 SHAILESH Hernandez [place] TYPE: Emergency COMPLAINT: - SEPSIS 02/10/2022 11:49 Geoffrey [place]ORGES [place] TYPE: Emergency DIAGNOSES: - Morbid (severe) obesity with alveolar hypoventilation - Hypokalemia - Pediculosis due to Pediculus humanus capitis - Difficulty Breathing - Urinary tract infection, site not specified - Followup Medical Problem 02/08/2022 12:28 Geoffrey [place]ORGES [place] TYPE: Emergency DIAGNOSES: - Shortness of Breath - Adult failure to thrive - Candidiasis, unspecified - Disorder of kidney and ureter, unspecified - Weakness - Difficulty Breathing - Other specified personal risk factors, not elsewhere classified - Hypokalemia 02/06/2022 15:34 SHAILESH Hernandez [place] TYPE: Emergency COMPLAINT: - NAUSEA/VOMITING 02/05/2022 16:[facility] [place] [facility] DIAGNOSES: [id number]. SOB 50243. Acute upper respiratory infection, unspecified 02/04/2022 03:47 SHAILESH Kelly TYPE: Emergency COMPLAINT: - MEDICATION ISSUE DIAGNOSES: - Personal history of nicotine dependence - Prediabetes - Contact with and (suspected) exposure to COVID- - Shortness of breath - Obesity, unspecified - Other usp (current) drug therapy - Candidiasis of vulva and vagina - Hypothyroidism, unspecified 02/03/2022 [facility] TYPE: Emergency DIAGNOSES: - Shortness of Breath 02/02/2022 10:07 SHAILESH Kelly TYPE: Emergency COMPLAINT: - VOMITING, LETHARGIC, SOB 02/01/2022 11:50 [facility] TYPE: Emergency DIAGNOSES: - Other fatigue - dofficulty breathing 01/31/2022 11:33 [facility] TYPE: Emergency DIAGNOSES: - Shortness of Breath - Vomiting, unspecified - Cough, unspecified - poss septic - Adenovirus infection, unspecified - Emesis 01/26/2022 20:[facility]: Emergency DIAGNOSES: - Emesis - Malignant neoplasm of left kidney, except renal pelvis - Dependence on other enabling machines and devices - Right lower quadrant pain - Obstructive sleep apnea (adult) (pediatric) - Sepsis, unspecified organism - Acute kidney failure, unspecified - Fever, unspecified - Other intervertebral disc degeneration, lumbar region - Nausea 01/26/2022 14:56 [facility] TYPE: Emergency DIAGNOSES: - Emesis - Nausea - Diarrhea (Adult) - Dehydration 01/21/2022 16:44 SHAILESH Hernandez [place] TYPE: Emergency COMPLAINT: - VOMITING DIAGNOSES: - Personal history of nicotine dependence - Other intermediate frame tender (current) drug therapy - Obesity, unspecified - Nausea with vomiting, unspecified - Hypothyroidism, unspecified - Unspecified osteoarthritis, unspecified site 01/14/2022 15:53 SHAILESH Hernandez [place] TYPE: Emergency COMPLAINT: - LETHARGIC DIAGNOSES: - Hypothyroidism, unspecified - Personal history of nicotine dependence - Polyneuropathy, unspecified - Personal history of other malignant neoplasm of kidney - Diarrhea, unspecified - Unspecified abdominal pain - Dehydration 10/03/2021 11:35 SHAILESH Hernandez [place] TYPE: Emergency COMPLAINT: - ABD PAIN, LOWER BACK PAIN 10/02/2021 20:38 SHAILESH Hernandez [place] TYPE: Emergency COMPLAINT: - FLU SYMPTOMS, FEVER DIAGNOSES: - Other intermediate frame tender (current) drug therapy - Personal history of nicotine dependence - Acute kidney failure, unspecified - Obesity, unspecified - COVID-19 - Elevation of levels of liver transaminase levels - Type 2 diabetes mellitus with diabetic neuropathy, unspecified - Hypothyroidism, unspecified - Fever, unspecified INPATIENT VISIT TRACKING (12 MO.) 02/08/2022 12:28 Geoffrey BORGES [place] TYPE: General Medicine DIAGNOSES: - Adult failure to thrive - Weakness - Hypokalemia - Other specified personal risk factors, not elsewhere classified - Candidiasis, unspecified - Disorder of kidney and ureter, unspecified - Acute cystitis without hematuria 02/06/2022 15:35 SHAILESH Hernandez [place] TYPE: Observation COMPLAINT: - ACUTE KIDNEY INJURY DIAGNOSES: - Obesity, unspecified - Acquired absence of kidney - Migraine, unspecified, not intractable, without status migrainosus - Malignant neoplasm of unspecified kidney, except [...] infection, site not specified - Candidal stomatitis 01/26/2022 20:57 [facility] TYPE: Internal Medicine DIAGNOSES: - Lumbago with sciatica, right side - Acute kidney failure, unspecified - Right lower quadrant pain - Fever, unspecified - Other intervertebral disc degeneration, lumbar region - Lumbago with sciatica, left side - Dependence on other enabling machines and devices - Other chronic pain - Sepsis, unspecified organism - Malignant neoplasm of left kidney, except renal pelvis - Obstructive sleep apnea (adult) (pediatric) 06/30/2021 10:20 [facility]: Surgery DIAGNOSES: - Other specified disorders of kidney and ureter [email or web address]
[2022-02-17] MEDS ORDERED: CYCLOBENZAPRINE10 MG PO (22:18)
[2022-02-17] MEDS ORDERED: ONDANSETRON ODT8 MG PO (22:18)
[2022-02-17] MEDS ORDERED: K-TAB ER20 MEQ PO (22:22)
[2022-02-17] MEDS ORDERED: LASIX20 MG PO (22:22)
--- NOTE | 2022-02-20 15:19 | EKG ---
[facility] [address] [facility] [place] [address] Signed Normal sinus rhythm Low voltage QRS Cannot rule out Anterior infarct , age undetermined Abnormal ECG When compared with ECG of 12-FEB-2022 12:57, Nonspecific T wave abnormality no longer evident in Lateral leads Prolonged QT Confirmed by Sidney Cohen MD () on 02/20/2022 3:19:00 PM Electronically Signed By: SIDNEY COHEN MD 02/20/22 1519 PATIENT NAME: BRONSON MARTÍNEZ Electrocardiogram DATE OF : 68 PHYSICIAN: SIDNEY COHEN MD REPORT #: [id number] REPORT IS CONFIDENTIAL AND NOT TO BE RELEASED WITHOUT AUTHORIZATION
== END 2022-02-16 14:37 | disposition home or self-care (01) ==
LOC: ED 10:08
DX: R19.7 Diarrhea, unspecified (principal); E87.6 Hypokalemia; R53.1 Weakness; E66.9 Obesity, unspecified; E03.9 Hypothyroidism, unspecified; M19.90 Unspecified osteoarthritis, unspecified site; Z87.891 Personal history of nicotine dependence; Z79.899 Other long term (current) drug therapy
CPT/HCPCS: 36415; 71045; 80053; 81001; 83690; 83735; 84484; 85025; 87493; 93005; 93010; 96360; 96361; 99285-25; A9270; J7030

== ENCOUNTER 2022-02-17 19:35 | Emergency (ER) | payer OTHER ==
[~2022-02-17] VITALS: Ht 165.1 cm; Wt 147.9 kg
--- OUTSIDE RECORDS SUMMARY | 2022-02-17 19:38 | XMS ---
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 - Patient with suicidal and/or homicidal ideations eloped. - Patient eloped with IV in place. Details: PATIENT LWBS CRITERIA MET - [facility] - 3 Facilities in 90 Days - [facility] - 2 Visits in 30 Days - [facility] - 6 ED Visits in 6 Months CARE PROVIDERS Rosanna Lee Nurse Practitioner: Family Current PHONE: [phone] Care Guidelines exist for the following facilities: [facility] ( 06/09/2019 ) Care History Medical/Surgical 06/07/2019 [facility] - PATIENT CURRENTLY RESIDING AT [facility]- [facility]W IS UNABLE TO CONTACT PATIENT. E.D. VISIT COUNT (12 MO.) 1 [facility] 3 [facility] 1 [facility] 2 Geoffrey Aguerobrenda Karl 1 [facility] 10 SHAILESH Thompson TOTAL 18 NOTE: Visits indicate total known visits. ED/UCC VISIT TRACKING (12 MO.) 02/17/2022 19:35 SHAILESH Hernandez [place] TYPE: Emergency COMPLAINT: - VOMITING 02/16/2022 10:10 SHAILESH Hernandez [place] TYPE: Emergency COMPLAINT: - DIFFICULTY BREATHING, WEAK, UNABLE TO STAND 02/12/2022 12:42 SHAILESH Vargasony Matt Stephenson [place] TYPE: Emergency COMPLAINT: - SEPSIS 02/10/2022 11:49 Geoffrey BORGES [place] TYPE: Emergency DIAGNOSES: - Pediculosis due to Pediculus humanus capitis - Difficulty Breathing - Urinary tract infection, site not specified - Followup Medical Problem - Morbid (severe) obesity with alveolar hypoventilation - Hypokalemia 02/08/2022 12:28 Geoffrey BORGES [place] TYPE: Emergency DIAGNOSES: - Disorder of kidney and ureter, unspecified - Weakness - Difficulty Breathing - Other specified personal risk factors, not elsewhere classified - Hypokalemia - Shortness of Breath - Adult failure to thrive - Candidiasis, unspecified 02/06/2022 15:34 SHAILESH Kelly TYPE: Emergency COMPLAINT: - NAUSEA/VOMITING 02/05/2022 16:09 [facility] [place] TYPE: Emergency DIAGNOSES: [id number]. SOB 23424. Acute upper respiratory infection, unspecified 02/04/2022 03:47 SHAILESH Kelly TYPE: Emergency COMPLAINT: - MEDICATION ISSUE DIAGNOSES: - Shortness of breath - Obesity, unspecified - Other intermodal customer service (current) drug therapy - Candidiasis of vulva and vagina - Hypothyroidism, unspecified - Personal history of nicotine dependence - Prediabetes - Contact with and (suspected) exposure to COVID-19 02/03/2022 12:45 [facility] TYPE: Emergency DIAGNOSES: - Shortness of Breath 02/02/2022 10:07 [facility] [place] Matt Stephenson [place] TYPE: Emergency COMPLAINT: - VOMITING, LETHARGIC, SOB 02/01/2022 11:50 [facility] [place] TYPE: Emergency DIAGNOSES: - dofficulty breathing - Other fatigue 01/31/2022 11:33 [facility]: Emergency DIAGNOSES: - Cough, unspecified - poss septic - Adenovirus infection, unspecified - Emesis - Shortness of Breath - Vomiting, unspecified 01/26/2022 20:57 [facility] TYPE: Emergency DIAGNOSES: - Obstructive sleep apnea (adult) (pediatric) - Sepsis, unspecified organism - Acute kidney failure, unspecified - Fever, unspecified - Other intervertebral disc degeneration, lumbar region - Nausea - Emesis - Malignant neoplasm of left kidney, except renal pelvis - Dependence on other enabling machines and devices - Right lower quadrant pain 01/26/2022 14:56 [facility] TYPE: Emergency DIAGNOSES: - Diarrhea (Adult) - Dehydration - Emesis - Nausea 01/21/2022 16:44 SHAILESH Hernandez [place] TYPE: Emergency COMPLAINT: - VOMITING DIAGNOSES: - Obesity, unspecified - Nausea with vomiting, unspecified - Hypothyroidism, unspecified - Unspecified osteoarthritis, unspecified site - Personal history of nicotine dependence - Other prison (current) drug therapy 01/14/2022 15:53 SHAILESH Kelly TYPE: Emergency COMPLAINT: - LETHARGIC DIAGNOSES: - Polyneuropathy, unspecified - Personal history of other malignant neoplasm of kidney - Diarrhea, unspecified - Unspecified abdominal pain - Dehydration - Hypothyroidism, unspecified - Personal history of nicotine dependence 10/03/2021 11:35 SHAILESH Hernandez [place] TYPE: Emergency COMPLAINT: - ABD PAIN, LOWER BACK PAIN 10/02/2021 20:38 SHAILESH Hernandez [place] TYPE: Emergency COMPLAINT: - FLU SYMPTOMS, FEVER DIAGNOSES: - Obesity, unspecified - COVID-19 - Elevation of levels of liver transaminase levels - Type 2 diabetes mellitus with diabetic neuropathy, unspecified - Hypothyroidism, unspecified - Fever, unspecified - Other prison (current) drug therapy - Personal history of nicotine dependence - Acute kidney failure, unspecified INPATIENT VISIT TRACKING (12 MO.) 02/08/2022 12:28 Geoffrey BORGES [place] TYPE: General Medicine DIAGNOSES: - Hypokalemia - Other specified personal risk factors, not elsewhere classified - Candidiasis, unspecified - Disorder of kidney and ureter, unspecified - Acute cystitis without hematuria - Adult failure to thrive - Weakness 02/06/2022 15:35 SHAILESH Hernandez [place] TYPE: Observation COMPLAINT: - ACUTE KIDNEY INJURY DIAGNOSES: - Hypothyroidism, unspecified - Chronic kidney disease, [...] renal pelvis - Acute kidney failure, unspecified 01/26/2022 20:57 [facility] TYPE: Internal Medicine DIAGNOSES: - Other intervertebral disc degeneration, lumbar [...] Right lower quadrant pain - Fever, unspecified 06/30/2021 10:20 [facility] Roshan WILSON TYPE: Surgery DIAGNOSES: - Other specified disorders of kidney and ureter [email or web address]
[2022-02-17] MEDS ORDERED: ONDANSETRON ODT8 MG PO (22:18)
[2022-02-17] MEDS ORDERED: CYCLOBENZAPRINE10 MG PO (22:18)
[2022-02-17] MEDS ORDERED: LASIX20 MG PO (22:22)
[2022-02-17] MEDS ORDERED: K-TAB ER20 MEQ PO (22:22)
== END 2022-02-17 23:55 | disposition home or self-care (01) ==
LOC: ED 19:35
DX: R60.0 Localized edema (principal); R11.2 Nausea with vomiting, unspecified; Z20.822 Contact with and (suspected) exposure to COVID-19; E03.9 Hypothyroidism, unspecified; G62.9 Polyneuropathy, unspecified; E66.9 Obesity, unspecified; Z87.891 Personal history of nicotine dependence; Z79.899 Other long term (current) drug therapy
CPT/HCPCS: 36415; 71250; 80053; 81001; 83880; 85025; 85060; 87088; 87502; 96374; 96375; 99284-25; A9270; J1940; J2405; J3010; U0003

== ENCOUNTER 2022-08-19 10:47 | Emergency (ER) | payer OTHER ==
[~2022-08-19] VITALS: Ht 165.1 cm; Wt 108.0 kg
[~2022-08-19 10:47] MED LIST changes: +CYCLOBENZAPRINE10 MG PO; +K-TAB ER20 MEQ PO; +LASIX20 MG PO; +ONDANSETRON ODT8 MG PO
[2022-08-19] MEDS ORDERED: DIFLUCAN150 MG PO (15:50)
[2022-08-19] MEDS ORDERED: ANTI-FUNGAL POW71 GM TOP (15:50)
[2022-08-19] MEDS ORDERED: ONDANSETRON ODT8 MG PO (15:50)
--- NOTE | 2022-08-19 20:15 | EKG ---
[facility] [address] [facility] [place] [address] Signed Normal sinus rhythm ST \T\ T wave abnormality, consider inferior ischemia ST \T\ T wave abnormality, consider anterolateral ischemia Prolonged QT Abnormal ECG When compared with ECG of 16-FEB-2022 10:24, T wave inversion now evident in Inferior leads T wave inversion now evident in Anterolateral leads QT has shortened Confirmed by Sidney Cohen MD () on 08/19/2022 8:15:42 PM Electronically Signed By: SIDNEY COHEN MD 08/19/222014 PATIENT NAME: BRONSON MARTÍNEZ Electrocardiogram DATE OF : 68 PHYSICIAN: SIDNEY COHEN MD REPORT #: [id number] REPORT IS CONFIDENTIAL AND NOT TO BE RELEASED WITHOUT AUTHORIZATION
== END 2022-08-19 16:49 | disposition home or self-care (01) ==
LOC: ED 10:47
DX: B37.2 Candidiasis of skin and nail (principal); R07.9 Chest pain, unspecified; E66.9 Obesity, unspecified; E03.9 Hypothyroidism, unspecified; M19.90 Unspecified osteoarthritis, unspecified site; Z79.899 Other long term (current) drug therapy
CPT/HCPCS: 36415; 71045; 74177; 80053; 81001; 83880; 84484; 85025; 93005; 93010; 96361; 96375; 99285-25; J1885; J2405; J3010; J7030; Q9967

== ENCOUNTER 2023-03-11 11:33 | Inpatient (IN) | payer OTHER ==
[~2023-03-11] VITALS: Ht 165.1 cm; Wt 108.5 kg
--- NOTE | 2023-03-11 10:50 | NUR ---
SPO2 HAS BEEN DROPPING DOWN TO 82-83% WITH PT SLEEPING, O2/2L/NC APPLIED AND SATS UP TO 95%.
[~2023-03-11 11:33] MED LIST changes: +ANTI-FUNGAL POW71 GM TOP; +CEPHALEXIN500 M1 PO; +CIPRO500 MG PO; +HYDROCODON-ACE1 EA10 PO; +PREDNISONE20 MG PO; +TOPIRAMATE25 MG PO
[2023-03-11 12:03] LABS: BASOPHILS 1.1 % (0-2); EOSINOPHILS 1.6 % (0-6); HEMATOCRIT 45.2 % (35.0-50.0); HEMOGLOBIN 15.3 g/dL (12.0-18.0); LYMPHOCYTES 22.5 % (24-44); MCH 28.7 (27-36); MCHC 33.9 g/dl (30-36); MCV 84.8 fl (81-99); MONOCYTES 15.4 % (0-12); NEUTROPHILS 59.4 % (39-80); PLATELET COUNT 172 K/uL (140-440); RBC 5.33 M/ul (4.3-5.7)
[2023-03-11 12:20] LABS: BILIRUBIN, URINE NEGATIVE (negative); BLOOD/HGB, URINE NEGATIVE (Negative); KETONE, URINE NEGATIVE (Negative); LEUK ESTERASE, URINE NEGATIVE (negative); NITRITE, URINE NEGATIVE (negative)
[2023-03-11 12:20] LABS: ALBUMIN 3.9 g/dL (3.4-5.0); ALBUMIN/GLOBULIN RATIO 0.89 (1.1-2.4); BILIRUBIN, TOTAL 0.9 ng/dL (0.2-1.0); BUN/CREATININE RATIO 8.51 (6.0-28.6); CALCIUM 10.3 mg/dL (8.5-10.1); CREATININE, SERUM 3.29 mg/dL (0.55-1.02); PROTEIN, TOTAL 8.3 g/dL (6.4-8.2)
[2023-03-11 12:23] LABS: LACTIC ACID, BLOOD 1.7 mmol/L (0.4-2.0)
[2023-03-11 12:32] LABS: AMPHETAMINES, URINE NEGATIVE (NEGATIVE); BARBITURATES, URINE NEGATIVE (NEGATIVE); BENZODIAZEPINE, URINE NEGATIVE (NEGATIVE); BUPRENORPHINE, URINE NEGATIVE (NEGATIVE); CANNABINOID, URINE NEGATIVE (NEGATIVE); COCAINE, URINE NEGATIVE (NEGATIVE); ECSTASY, URINE NEGATIVE (NEGATIVE); FENTANYL, URINE NEGATIVE (NEGATIVE); OPIATES, URINE NEGATIVE (NEGATIVE); OXYCODONE, URINE NEGATIVE (NEGATIVE); PHENCYCLIDINE, URINE NEGATIVE (NEGATIVE)
[2023-03-11 12:35] LABS: INFLUENZA B NAA NEGATIVE (NEGATIVE); RESPIRATORY SYNCYTIAL VIR NAA NEGATIVE (NEGATIVE)
[2023-03-11] MEDS ORDERED: SULFAMETHOXAZO1 EAC1 PO (16:45)
[2023-03-11] MEDS ORDERED: LEVOTHYROXINE125 MCG PO (16:47)
[2023-03-11] MEDS ORDERED: HYDROCORTISONE10 MG PO (16:53)
--- NOTE | 2023-03-11 17:30 | NUR ---
PT TO ROOM 128 VIA [facility] WITH COVID PRECAUTIONS, PT MOVED SELF MOSTLY FROM STRECHER TO BED WITH ENCOURAGEMENT, BACK SIDE SKIN WNL, FEET COLD WITH PPX4 LOMELI IN PLACE WITH TEMP PROB AND DRAINING YELLOW URINE. PT CONFUSED, MOANING FOR UNKNOWN REASONS - DENIES NEEDS, EXCEPT SHE IS ASKING TO LEAVE, LEFT JAW WITH LARGE RED OPEN MASS - WARM WET COMPRESS APPLIED BY THIS RN, DR SHARP HERE AT BEDSIDE -, 5 PILL BOTTLES FROM HOME SHOWN TO cecily from pharmacy and then pt gave rn [address] in room safe. rn called to family at home, mother armando and son anurag to let them know pt is in room 128 and has positive covid test and continues to have head lice from last pcp visit in [facility] [place]. this rn and rodger treated pt head with nix lotion on head - finding live louse of good size with eggs noted on hair shaft - family reports unaware of this fining and has not treated the home or themselves. rn educated armando of bagging cusions, using hot dryer and otc treatments. pt was calm during the lice treatment and rested with eyes closed during and after treatment, call light in reach, iv fusing in left arm ns @ 125 and pt npo. iv norepi drip at 6 and checked by josé manuel hogan on admit to 128. pt does have red areas in all skin folds, but has no open areas at this time, these are chronic per records.
[2023-03-11 17:40] VITALS: BP 102/66
[2023-03-11 18:00] VITALS: BP 103/65
[2023-03-11] MEDS ORDERED: AMOX TR-K CLV1 EAC1 PO (18:07)
--- NOTE | 2023-03-11 18:09 | NUR ---
MED REC COMPLETE
[2023-03-11] MEDS ORDERED: FLUOXETINE HCL20 MG PO (18:14)
[2023-03-11] MEDS ORDERED: PANTOPRAZOLE SO40 MG PO (18:14)
[2023-03-11 18:30] VITALS: BP 112/71
--- NOTE | 2023-03-11 19:46 | NUR ---
REPORT RECEIVED FROM MICHAEL RAMÍREZ. PT IS RESTING IN BED WITH EYES CLOSED, RESP EVEN AND UNLABORED, ON ROOM AIR WITH SPO2 99%. HR 90'S.
--- NOTE | 2023-03-11 20:00 | NUR ---
IN TO SEE PT, DO ASSESSMENT AND HANG DARCI IV ABX AND DIFLUCAN. PT DOES AROUSE TO VERBAL CUES BUT FALLS BACK TO SLEEP QUICKLY. IV NOREPI TITRATED DOWN, SEE FLOW SHEET. PT IS ORIENTED TO SELF ONLY. WHEN TOLD SHE IS IN THE HOSPITAL SHE STARTS SOBBING, "I DIDN'T KNOW I WAS IN A HOSPITAL". EVENTUALLY REASSURED AND SHE GOES BACK TO SLEEP. HEAT PACK IS IN PLACE TO LEFT CHEEK. LUNGS CLEAR, POSITIVE BOWEL SOUNDS. LOMELI DRAINING DARK YELLOW CLEAR URINE. PT HAS VERY FOUL ODOR FROM MOUTH, TONGUE IS YELLOW AND DRY AND SCALY. ORAL CARE DONE.
--- NOTE | 2023-03-11 20:56 | NUR ---
PT HAS WOKEN UP AND HAS BEEN MOANING AND C/O PAIN FOR THE LAST [address] SHARP CALLED AND HE STATES HE WILL COME AND SEE PT.
[2023-03-11 21:00] VITALS: BP 110/64
--- NOTE | 2023-03-11 21:11 | NUR ---
DR SHARP IN TO UNIT TO SEE PT, PT HAS CALMED DOWN AND IS BACK TO SLEEP NOW. ORDER FOR BENADRYL GIVEN. LEVOPHED DRIP REMAINS OFF.
[2023-03-11 22:00] VITALS: BP 108/65
--- NOTE | 2023-03-11 22:30 | NUR ---
PT CONT TO OCCASIONALLY WAKE UP AND MOAN BUT GOES BACK TO SLEEP QUICKLY. REMAINS OFF OF THE LEVOPHED DRIP.
[2023-03-11 23:00] VITALS: BP 108/71
[2023-03-12] VITALS (16 sets, daily range): BP systolic 102–119; BP diastolic 63–76
--- NOTE | 2023-03-12 | NUR ---
IN TO DO ASSESSMENT, UNCHANGED FORM EARLIER, MORE ORAL CARE DONE.
--- NOTE | 2023-03-12 01:42 | NUR ---
PT RESTING WITH EYES CLOSED RRR
--- NOTE | 2023-03-12 04:15 | NUR ---
IN TO CHECK ON PT AND SHE WAKES UP A BIT MORE ORIENTED THIS MORNING, IS ABLE TO SAY SHE IS IN THE HOSPITAL. QUICKLY BACK TO SLEEP AFTER ASSESSMENT, FRESH HOT PACK APPLIED TO LEFT CHEEK.
--- NOTE | 2023-03-12 05:20 | NUR ---
LAB IN TO DRAW
[2023-03-12 05:45] LABS: INR 1.15 (0.80-1.30); PROTIME 14.2 Sec (11.2-14.2)
[2023-03-12 05:50] LABS: ALBUMIN 3.2 g/dL (3.4-5.0); ALBUMIN/GLOBULIN RATIO 0.74 (1.1-2.4); ANION GAP 17.3 (7-21); BILIRUBIN, TOTAL 0.5 ng/dL (0.2-1.0); BUN/CREATININE RATIO 13.54 (6.0-28.6); CALCIUM 9.3 mg/dL (8.5-10.1); CREATININE, SERUM 1.92 mg/dL (0.55-1.02); POTASSIUM 4.3 mmol/L (3.5-5.1); PROTEIN, TOTAL 7.5 g/dL (6.4-8.2)
[2023-03-12 06:10] LABS: BASOPHILS 0.3 % (0-2); EOSINOPHILS 0.1 % (0-6); HEMATOCRIT 40.7 % (35.0-50.0); LYMPHOCYTES 7.6 % (24-44); MCH 28.9 (27-36); MCHC 34.3 g/dl (30-36); MCV 84.3 fl (81-99); MONOCYTES 2.4 % (0-12); NEUTROPHILS 89.6 % (39-80); PLATELET COUNT 133 K/uL (140-440); RBC 4.83 M/ul (4.3-5.7); RDW 13.9 (10.5-15.0)
--- NOTE | 2023-03-12 08:45 | NUR ---
PT APPEARED TO BE SLEEPING. DID NOT DISTURB, PRAYED SILENTLY FOR HEALING OF BODY AND SPIRIT.
--- NOTE | 2023-03-12 09:12 | NUR ---
In to complete assessment. Patient resting with eyes closed. Respirations even and unlabored. Allowed to rest at this time. Will returnt to assess later today.
--- NOTE | 2023-03-12 10:29 | NUR ---
LYING IN BED WITH EYES CLOSED, WAKES IMMEDIATELY TO VOICE. ALERT AND ORIENTED. STATES SHE LIVES IN HOME WITH "A FEW STEPS TO GET INSIDE," WITH MOTHER AND SON. STATES SHE HAS NO DIFFICULTY USING STEPS. DENIES NEED/USE OF ANY DME AT [place]. STATES SHE NO LONGER DRIVES. SON, BRADY, PROVIDES TRANSPORTATION FOR HER. STATES SHE GET ASSISTANCE FOR FOOD, $74/MONTH. STATES SHE COULD USE MORE ASSISTANCE WITH FOOD AND POTENTIALLY UTILITIES. DEMOGRAPHICS CONFIRMED WITH PATIENT. INFORMED HER, WILL RETURN WITH INFORMATION FOR RESOURCES. STATES SHE IS UPSET SHE IS CURRENTLY IN THE HOSPITAL BECAUSE SHE IS SUPPOSED TO HAVE HER DAUGHTER THIS WEEKEND, TEARFUL.
--- NOTE | 2023-03-12 10:45 | NUR ---
Information for [facility] food [facility] and [employer] provided to patient. Denies other needs. Instructed to notify staff if needs arise. Verbalizes understanding.
--- NOTE | 2023-03-12 10:52 | NUR ---
DELAYED ENTRY- SPOKE WITH DR SHARP AT 0754 TO CONFIRM NPO STATUS PATIENT HAS ORAL MEDICATIONS ORDERED. HE REQUESS THAT PATIENT BE GIVEN ORAL MEDS WITH SIPS OF WATER. IS ALSO ALLOWED ICE CHIPS.
--- NOTE | 2023-03-12 13:30 | NUR ---
THIS RN RECIEVED REPORT FROM KALEN RAMÍREZ. THIS RN TOOK OVER CARE OF PATIENT AT THIS TIME. PATIENT RESTING IN BED ON 1L NC. PATIENT AWAKE ALERT AND ORIENTED AND WATCHING TV. PATIENT REQUESTED PLAN OF CARE UPDATE AND WANTS TO GO HOME. PROVIDER NOTIFIED BY KALEN RAMÍREZ. CALL LIGHT IN REACH.
--- NOTE | 2023-03-12 13:39 | NUR ---
INTO ROOM FOR CALL LIGHT, PATIENT REPORTS SHE FEELS VERY WELL AND THINKS SHE IS WELL ENOUGHT OT GO HOME. DR SHARP NOTIFIED. HE REPORTS HE WILL BE DOWN TO SEE HER IN A LITTLE BIT AND WILL DISCUSS PLAN OF CARE WITH HER. CONCERN OVER THE INFECTION IN HER NECK. PATIENT NOTIFIED, REPORTS SHE JUST STARTED ON ABX TWO DAYS AGO FOR THIS. SHE WILL DISCUSS THIS WHEN DR SHARP ARRIVES TO SEE HER.
--- NOTE | 2023-03-12 16:01 | NUR ---
THIS RN IN TO ASSIST PT AND HELPED PATIENT WITH INCONT EPISODE IN BED. PATIENT ABLE TO STAND AND WALK TO THE CHAIR. PATIENT EDUCATED ON PLAN OF CARE BY MD AND GOALS OF TREATMENT. PATIENT AGREEABLE TO STAYING OVERNIGHT TO RECIEVE ANTIBIOTICS AND FURTHER TREATMENT. PATIENT LINEN CHANGED. PATIENT REPORTS CONTINUOUS DIAHREA. C-DIFF SAMPLE SENT. PATIENT HAS CALL LIGHT. FAMILY BROUGHT IN PERSONAL BELONINGS. PATIENT DIET ADVANCED TO REGULAR PER MD. CALL LIGHT IN REACH. PATIENT RESTING IN T HE CHAIR.
--- NOTE | 2023-03-12 16:17 | NUR ---
UR NOTE: [facility] [place] [facility] [place]PATIENT MET ADMIT 03/11/23
--- NOTE | 2023-03-12 16:37 | NUR ---
PT ASSISTED TO BED FROM CHAIR WITH 1PA. PT TOLERATED WELL. PT GIVEN HOSPITAL PHONE TO TALK WITH FAMILY, DENIES FURTHER NEEDS. CALL LIGHT WITHIN REACH AND BEDRAIL UP FOR SAFETY.
--- NOTE | 2023-03-12 16:54 | EKG ---
[facility] [address] [facility] [place], [place] [address] Signed Sinus tachycardia Nonspecific ST and T wave abnormality Prolonged QT Abnormal ECG No previous ECGs available Confirmed by LILIAN SHARP MD ([id number]) on 03/12/2023 4:54:30 PM Electronically Signed By: LILIAN SHARP 03/12/23 1654 PATIENT NAME: BRONSON MARTÍNEZ Electrocardiogram DATE OF : 68 PHYSICIAN: LILIAN SHARP REPORT #: [id number] REPORT IS CONFIDENTIAL AND NOT TO BE RELEASED WITHOUT AUTHORIZATION
--- NOTE | 2023-03-12 17:30 | NUR ---
OTHER STAFF IN TO ASSIST PATIENT UP TO THE BED. MEDICATIONS GIVEN. PATIENT TOELRATED WELL.
--- NOTE | 2023-03-12 17:45 | NUR ---
pt up to bedside commode to void. tolerated well
--- NOTE | 2023-03-12 18:00 | NUR ---
DIET ADVANCED TO REGULAR DIET PER MD. PATIENT FOOD PROVIDED IN AT THE BEDSIDE. PATIENT SITTING UP IN BED EATING. PATIENT DENIES ANY OTHER NEEDS AT THIS TIME. CALL LIGHT INREACH.
--- NOTE | 2023-03-12 19:43 | NUR ---
RN TO CALL IF O2 REQUIRED.
--- NOTE | 2023-03-12 20:00 | NUR ---
PT REQUESTED TYELNOL AND SOMTHING FOR ITCHING. TYLENOL AND BENADRYL GIVEN. PT IS UP TO COMMODE, URINATED AND HAD A BOUGHT OF DIARRHEA. PT CLEANED UP AND BACK TO BED. PT IS RESTING COMFORTABLY. PT GENERAL ASSESSMENT IS WITHIN NORMAL LIMITS. VITAL SIGNS ARE WITH IN NORMAL LIMITS. ALL PTS QUESTIONS AND CONCERNS ANSWERED. CALL LIGHT WITH REACH, BED ALARM ON.
--- NOTE | 2023-03-12 22:00 | NUR ---
PT IS RESTING IN BED AT THIS TIME. PT REPOSITIONS SELF. ALL QUESTIONS AND CONCERNS ADDRESSED AT THIS TIME. CALL LIGHT WITH IN REACH. VITAL SIGNS WITH IN NORMAL LIMITS. BED ALARM SET.
--- NOTE | 2023-03-12 23:35 | NUR ---
PT UP TO BEDSIDE COMMODE WITH STAND BY ASSIST X1. PT RETURNED BACK TO BED AND IS RESTING COMFORTABLY. PT VS WITHIN NORMAL LIMITS. PT DID REFUSE NASAL CANNULA FOR PRESUMMED SLEEP APNEA AT THIS TIME, SPO2 WITH IN NORMAL RANGE. ALL QUESTIONS AND CONCERNS ADDRESSED AT THIS TIME. CALL LIGHT WITH IN REACH, BED ALARM SET.
[2023-03-13] VITALS (10 sets, daily range): BP systolic 105–122; BP diastolic 58–98
--- NOTE | 2023-03-13 02:30 | NUR ---
PT IS RESTING IN BED, PT REPOSITIONS SELF. VS WITH IN NORMAL RANGE. ALL QUESTIONS AND CONCERNS ADDRESSED, CALL LIGHT WITH IN REACH.
--- NOTE | 2023-03-13 04:00 | NUR ---
PT IS UP TO BEDSIDE COMMODE, AND BACK TO BED. PT DOES NOT COMPLAIN OF PAIN AT THIS TIME. PT VS ARE WITHIN NORMAL LIMITS. NO SIGNIFICANT CHANGES TO PT ASSESSMENT. ALL QUESTIONS AND CONCERNS ADDRESSED AT THIS TIME. CALL LIGHT IS WITH IN REACH.
--- NOTE | 2023-03-13 06:14 | NUR ---
PT IS RESTING IN BED. VS ARE WITH IN NORMAL LIMITS. NO COMPLAINTS OF PAIN AT THIS TIME. CALL LIGTH IS WITH IN REACH, PT REPOSITIONS SELF. ALL QUESTIONS AND CONCERNS ADDRESSED.
--- NOTE | 2023-03-13 07:30 | NUR ---
REPORT RECIEVED FROM COMMUNITY OUTREACH MANAGER RN. PER REPROT PATIENT VITALS STABLE OVERNIGHT. PATIENTS MENTATION CONTINUES TO CLEAR AND IS ALERT AND ORIENTED WITH MORE APPROPRIATE EMOTIONAL RESPONSE PER REPORT. PATIENT RESTING IN BED AT THIS TIME. CALL LIGHT IN REACH AND PATIENT USES IT APPROPRIATELY.
--- NOTE | 2023-03-13 09:00 | NUR ---
PATIENT UP TO USE THE BATHROOM. PATIENT TOLERATED WELL AND NOW RESTING IN THE CHAIR. BREAKFAST PROVIDED. PATIENT DENIES ANY NEEDS AT THIS TIME. CALL LIGHT IN REACH.
[2023-03-13] MEDS ORDERED: DIFLUCAN100 MG PO (09:33)
--- NOTE | 2023-03-13 10:00 | NUR ---
MEDICATIONS GIVEN AND IV MEDICATION INFUSING. PATIENT SITTING UP IN THE CHAIR AND TOELRATING WELL. MD SHARP IN TO DISCUSS PLAN OF CARE WITH PATIENT. PATIENT AGREEABLE TO PLAN OF CARE AND FEELS READY TO DC HOME. MD WILL PLACE ORDERS FOR DC HOME. PATIENT WILL CALL HER FAMILY AND UPDATED THAT SHE NEEDS A RIDE HOME. NO OTHER QUESTIONS AT THIS TIME.
[2023-03-13] MEDS ORDERED: PREDNISONE20 MG PO (10:40)
[2023-03-13] MEDS ORDERED: LICE TREATMENT59 ML TOP (10:40)
--- NOTE | 2023-03-13 12:00 | NUR ---
PATIENT UP TO THE BATHROOM. PATIENT ABLE TO WIPE HERSELF. PATIENT BACK TO BED. CLOTHES PROVIDED. PATIENT ABLE TO CHANGE ON HER OWN WITH RN AT THE BEDSIDE TO ASSIST IF NEEDED. IV DCD. REVIEWED PLAN OF CARE. PATIENT REPEATS BACK EDUCATION AND UNDERSTANDING. NO OTHER NEEDS AT THIS TIME. PATIENT RESTING BACK IN BED AWAITING FOR FAMILY FOR A RIDE HOME.
--- NOTE | 2023-03-13 12:54 | NUR ---
PATIENTS SON HERE TO GET PATIENT. REVIEWED PLAN OF CARE WITH PATIENT AND HER SON. REVIEWED MEDICATIONS AND PLAN OF CARE. PATIENT VERBALIZED UNDERSTANDING AND IMPORTANCE OF COMPLIANCE WITH MEDICATIONS. PATIENT DC NOW AND WILL GO TO PHARMACY AND PRINCIPAL ARCHITECTURAL [employer]M NEW PRESCRIPTIONS. NIX TREATMENT KIT ORDERED AND SENT WITH PATIENT FROM OUR PHARMACY FOR CONTINUED TREATMENT AND COMPLIANCE. PATIENT STOOD AND TRANSFERED TO WHEELCHAIR. ALL BELONINGS INCLUDING MEDICATIONS, RING, PHONE, AND PHONE PROPERTY DAMAGE CLAIMS ADJUSTOR. SONDRA BOO WHEELED PATIENT OUT OF CCU TO DC PATIENT HOME. MASK PLACED ON PATIENT FOR CONTINUED PRECAUTIONS.
[2023-03-14 18:30] LABS: C. DIFF TOXIN B GENE TCDB,PCR Not Detected (())
== END 2023-03-13 12:50 | disposition home or self-care (01) | DRG 643 ==
LOC: ED 11:33 → CCU 17:04
PROVIDERS: Emergency Medicine; ADMIT Internal Medicine; ATTEND Internal Medicine
PROC: 3E033XZ Introduction of Vasopressor into Peripheral Vein, Percutaneous Approach (ICD-10-PCS; principal; 2023-03-11)
PROC: 8E0ZXY6 Isolation (ICD-10-PCS; 2023-03-11)
DX: E27.40 Unspecified adrenocortical insufficiency (principal); U07.1 COVID-19; L03.90 Cellulitis, unspecified; E87.1 Hypo-osmolality and hyponatremia; R65.10 Systemic inflammatory response syndrome (SIRS) of non-infectious origin without acute organ dysfunction; I95.9 Hypotension, unspecified; L72.9 Follicular cyst of the skin and subcutaneous tissue, unspecified; E66.9 Obesity, unspecified; E03.9 Hypothyroidism, unspecified; G62.9 Polyneuropathy, unspecified; R73.03 Prediabetes; M19.90 Unspecified osteoarthritis, unspecified site; M51.9 Unspecified thoracic, thoracolumbar and lumbosacral intervertebral disc disorder; Z87.891 Personal history of nicotine dependence; Z98.890 Other specified postprocedural states; Z86.19 Personal history of other infectious and parasitic diseases; Z85.528 Personal history of other malignant neoplasm of kidney; Z79.899 Other long term (current) drug therapy; Z79.2 Long term (current) use of antibiotics; Z79.890 Hormone replacement therapy; Z68.39 Body mass index [BMI] 39.0-39.9, adult; Z90.5 Acquired absence of kidney
CPT/HCPCS: 36415; 70450; 70490; 71045; 71250; 74176; 80053; 80307; 81003; 83605; 84703; 85025; 85610; 87493; 87502; 93005; 93010; 97162; A9270; J0131; J0248; J0692; J0696; J0878; J1200; J1450; J1790; J2930; J3370; J3490; J7030; J7050; J7060; J7121; J7512; U0002

== ENCOUNTER 2024-02-07 11:41 | Emergency (ER) | payer OTHER ==
[~2024-02-07] VITALS: Ht 165.1 cm; Wt 119.6 kg
[~2024-02-07 11:41] MED LIST changes: +AMOX TR-K CLV1 EAC1 PO; +DIFLUCAN100 MG PO; +HYDROCORTISONE10 MG PO; +LEVOTHYROXINE125 MCG PO; +LICE TREATMENT59 ML TOP; +PANTOPRAZOLE SO40 MG PO; +SULFAMETHOXAZO1 EAC1 PO
[2024-02-07] MEDS ORDERED: ONDANSETRON 4 MG TAB ODT SL ONE (13:00)
[2024-02-07] MEDS ORDERED: OXYCODONE/APAP 5/325 TAB PO ONE (13:00)
[2024-02-07] MEDS ORDERED: LORazepam 1 MG TAB PO ONE (13:00)
[2024-02-07 13:14] LABS: BASOPHILS 1.2 % (0-2); EOSINOPHILS 3.5 % (0-6); HEMATOCRIT 40.6 % (35.0-50.0); HEMOGLOBIN 13.9 g/dL (12.0-18.0); LYMPHOCYTES 39.7 % (24-44); MCH 29.4 (27-36); MCHC 34.2 g/dl (30-36); MCV 85.9 fl (81-99); MONOCYTES 9.7 % (0-12); NEUTROPHILS 45.9 % (39-80); PLATELET COUNT 177 K/uL (140-440); RBC 4.72 M/ul (4.3-5.7); RDW 14.2 (10.5-15.0)
[2024-02-07 13:30] LABS: BILIRUBIN, URINE NEGATIVE (negative); BLOOD/HGB, URINE NEGATIVE (Negative); KETONE, URINE NEGATIVE (Negative); LEUK ESTERASE, URINE NEGATIVE (negative); NITRITE, URINE NEGATIVE (negative); PH, URINE 5.5 (5-7)
[2024-02-07 13:37] LABS: ALBUMIN 3.8 g/dL (3.4-5.0); ALBUMIN/GLOBULIN RATIO 1.06 (1.1-2.4); ANION GAP 15.9 (7-21); BILIRUBIN, TOTAL 0.7 ng/dL (0.2-1.0); BUN/CREATININE RATIO 7.97 (6.0-28.6); CALCIUM 9.8 mg/dL (8.5-10.1); CREATININE, SERUM 1.38 mg/dL (0.55-1.02); POTASSIUM 3.9 mmol/L (3.5-5.1); PROTEIN, TOTAL 7.4 g/dL (6.4-8.2)
[2024-02-07] MEDS ORDERED: ONDANSETRON ODT8 MG SL (14:54)
[2024-02-07] MEDS ORDERED: PERCOCET 5-3251 EACH PO (14:54)
[2024-02-07 14:58] VITALS: BP 90/66
== END 2024-02-07 14:58 | disposition home or self-care (01) ==
LOC: ED 11:41
PROVIDERS: Emergency Medicine
DX: M54.9 Dorsalgia, unspecified (principal); R11.2 Nausea with vomiting, unspecified; E03.9 Hypothyroidism, unspecified; R73.03 Prediabetes; E66.9 Obesity, unspecified; Z87.891 Personal history of nicotine dependence; Z79.899 Other long term (current) drug therapy; Z79.890 Hormone replacement therapy
CPT/HCPCS: 36415; 74176; 80053; 81003; 85025; 99284-25; A9270; A9270-GY

== ENCOUNTER 2024-02-13 22:13 | Emergency (ER) | payer OTHER ==
[~2024-02-13] VITALS: Ht 165.1 cm; Wt 123.5 kg
[~2024-02-13 22:13] MED LIST changes: +ONDANSETRON ODT8 MG SL; +PERCOCET 5-3251 EACH PO
[2024-02-13] MEDS ORDERED: OXYCODONE-ACET1 EAC1 PO (22:24)
[2024-02-13] MEDS ORDERED: LACTATED RINGER'S 1,000 ML IV ONE (22:30)
[2024-02-13] MEDS ORDERED: FAMOTIDINE 20 MG/ 2 ML VIAL IV ONE (22:30)
[2024-02-13] MEDS ORDERED: ACETAMINOPHEN 500 MG TAB PO ONE (23:30)
[2024-02-13] MEDS ORDERED: MAGNESIUM CITRATE 300 ML BTL PO ONE (23:45)
[2024-02-13 23:46] VITALS: BP 113/78
[2024-02-13] MEDS ORDERED: MIRALAX119 GM PO (23:49)
== END 2024-02-14 00:01 | disposition home or self-care (01) ==
LOC: ED 22:13
DX: K59.00 Constipation, unspecified (principal); E66.9 Obesity, unspecified; Z79.890 Hormone replacement therapy; Z79.899 Other long term (current) drug therapy
CPT/HCPCS: 74176; 80053; 83690; 85025; 99284; A9270

== ENCOUNTER 2024-02-14 18:23 | Emergency (ER) | payer OTHER ==
[~2024-02-14] VITALS: Ht 165.1 cm; Wt 123.3 kg
[~2024-02-14 18:23] MED LIST changes: +MIRALAX119 GM PO; +OXYCODONE-ACET1 EAC1 PO
[2024-02-14] MEDS ORDERED: ondansetron HCL 4 MG/2 ML VIAL IV ONE (18:45)
[2024-02-14 18:57] LABS: BASOPHILS 0.8 % (0-2); EOSINOPHILS 2.6 % (0-6); HEMATOCRIT 40.8 % (35.0-50.0); HEMOGLOBIN 13.9 g/dL (12.0-18.0); LYMPHOCYTES 28.5 % (24-44); MCH 29.2 (27-36); MCHC 34.1 g/dl (30-36); MCV 85.8 fl (81-99); MONOCYTES 7.5 % (0-12); NEUTROPHILS 60.6 % (39-80); PLATELET COUNT 173 K/uL (140-440); RBC 4.76 M/ul (4.3-5.7)
[2024-02-14] MEDS ORDERED: LACTATED RINGER'S 1,000 ML IV ONE (19:00)
[2024-02-14 19:07] LABS: ALBUMIN 3.7 g/dL (3.4-5.0); ALBUMIN/GLOBULIN RATIO 1.06 (1.1-2.4); ANION GAP 16.8 (7-21); BILIRUBIN, TOTAL 0.8 ng/dL (0.2-1.0); CALCIUM 9.4 mg/dL (8.5-10.1); CREATININE, SERUM 1.57 mg/dL (0.55-1.02); POTASSIUM 3.8 mmol/L (3.5-5.1); PROTEIN, TOTAL 7.2 g/dL (6.4-8.2)
[2024-02-14 19:48] LABS: BILIRUBIN, URINE NEGATIVE (negative); BLOOD/HGB, URINE TRACE-I (Negative); KETONE, URINE NEGATIVE (Negative); LEUK ESTERASE, URINE NEGATIVE (negative); NITRITE, URINE NEGATIVE (negative)
[2024-02-14 19:55] LABS: CASTS, URINE NONE SEEN \\lpf; CRYSTALS, URINE NONE SEEN (0-1+); EPITHELIAL CELLS, URINE SQUAMOUS 1+ /lpf (0-1+)
[2024-02-14 19:56] LABS: BACTERIA, URINE RARE /hpf (negative); COLLECTION TYPE, URINE CATH; REFLEX CULTURE, URINE No (No)
[2024-02-14 20:02] LABS: AMPHETAMINES, URINE NEGATIVE (NEGATIVE); BARBITURATES, URINE NEGATIVE (NEGATIVE); BENZODIAZEPINE, URINE NEGATIVE (NEGATIVE); BUPRENORPHINE, URINE NEGATIVE (NEGATIVE); CANNABINOID, URINE NEGATIVE (NEGATIVE); COCAINE, URINE NEGATIVE (NEGATIVE); ECSTASY, URINE NEGATIVE (NEGATIVE); FENTANYL, URINE NEGATIVE (NEGATIVE); METHADONE, URINE NEGATIVE (NEGATIVE); OPIATES, URINE NEGATIVE (NEGATIVE); OXYCODONE, URINE NEGATIVE (NEGATIVE); PHENCYCLIDINE, URINE NEGATIVE (NEGATIVE)
[2024-02-14 20:42] VITALS: BP 127/73
== END 2024-02-14 20:49 | disposition home or self-care (01) ==
LOC: ED 18:23
PROVIDERS: Emergency Medicine; Internal Medicine
DX: K59.00 Constipation, unspecified (principal); E03.9 Hypothyroidism, unspecified; R73.03 Prediabetes; E66.9 Obesity, unspecified; Z87.891 Personal history of nicotine dependence; Z79.899 Other long term (current) drug therapy; Z79.890 Hormone replacement therapy
CPT/HCPCS: 36415; 51701; 80053; 80307; 81001; 83690; 85025; 99284-25; J2405; J7121

== ENCOUNTER 2024-09-01 09:25 | Inpatient (IN) | payer OTHER ==
[~2024-09-01] VITALS: Ht 165.1 cm; Wt 131.1 kg
[2024-09-01] MEDS ORDERED: SODIUM CHLORIDE 0.9% 500 ML IV PRN (09:45)
[2024-09-01] MEDS ORDERED: CEFTRIAXONE SODIUM 2 GM in SODIUM CHLORIDE 0.9% 100 ML IV ONE (09:45)
[2024-09-01 09:46] LABS: BASOPHILS 1.5 % (0-2); EOSINOPHILS 3.9 % (0-6); HEMOGLOBIN 14.7 g/dL (12.0-18.0); LYMPHOCYTES 26.8 % (24-44); MCH 29.7 (27-36); MCV 84.9 fl (81-99); MONOCYTES 12.5 % (0-12); NEUTROPHILS 55.3 % (39-80); PLATELET COUNT 170 K/uL (140-440); RBC 4.94 M/ul (4.3-5.7); RDW 14.1 (10.5-15.0)
[2024-09-01 09:56] LABS: PARTIAL THROMBOPLASTIN TIME 33.6 Sec (22.9-41.3)
[2024-09-01 09:57] LABS: INR 1.18 (0.80-1.30); PROTIME 14.3 Sec (11.2-14.2)
[2024-09-01 10:10] LABS: ALBUMIN 3.7 g/dL (3.4-5.0); ALBUMIN/GLOBULIN RATIO 0.88 (1.1-2.4); ANION GAP 14.8 (7-21); BILIRUBIN, TOTAL 0.8 mg/dL (0.2-1.0); BUN/CREATININE RATIO 6.81 (6.0-28.6); CALCIUM 9.1 mg/dL (8.5-10.1); CREATININE, SERUM 1.76 mg/dL (0.55-1.02); POTASSIUM 3.8 mmol/L (3.5-5.1); PROTEIN, TOTAL 7.9 g/dL (6.4-8.2)
[2024-09-01] MEDS ORDERED: fentaNYL citrate 100 MCG/2 ML VIAL IV ONE (10:10)
[2024-09-01] MEDS ORDERED: fentaNYL citrate 100 MCG/2 ML VIAL ONE (10:11)
[2024-09-01] MEDS ORDERED: ondansetron HCL 4 MG/2 ML VIAL ONE (10:14)
[2024-09-01] MEDS ORDERED: ondansetron HCL 4 MG/2 ML VIAL IV ONE (10:15)
[2024-09-01 10:22] LABS: LACTIC ACID, BLOOD 2.2 mmol/L (0.4-2.0)
[2024-09-01 11:32] LABS: LACTIC ACID, BLOOD 1.1 mmol/L (0.4-2.0)
[2024-09-01 12:33] LABS: BILIRUBIN, URINE POSITIVE (negative); BLOOD/HGB, URINE MODERATE (Negative); KETONE, URINE TRACE (Negative); LEUK ESTERASE, URINE MODERATE (negative); NITRITE, URINE POSITIVE (negative)
[2024-09-01 12:34] LABS: EPITHELIAL CELLS, URINE SQUAMOUS 1+ /lpf (0-1+)
[2024-09-01 12:35] LABS: BACTERIA, URINE 1+ /hpf (negative); CASTS, URINE NONE SEEN \\lpf; COLLECTION TYPE, URINE CLEAN CATCH; CRYSTALS, URINE NONE SEEN (0-1+); REFLEX CULTURE, URINE Yes (No); WHITE BLOOD CELLS, URINE >50 /HPF (0-5)
[2024-09-01] MEDS ORDERED: HYDROCORTISONE SOD SUCCINATE 100 MG/2 ML VIAL IV SCH (15:00)
--- NOTE | 2024-09-01 15:04 | NUR ---
UR CLINICAL REVIEW: LADONNA, MEETS OBS FOR UTI. TEMP 100.7, HIGH LIKLIEHOOD OF OUTPATIENT FAILURE [facility] OBS 09/01/2024 @ 1449 ORDER MATCHES REG NO AUTH FOR OBS REQUIRED BY MEDICAID PLAN TO DC TO HOME WHEN MEDICALLY STABLE. 09/02/2024
--- NOTE | 2024-09-01 15:40 | NUR ---
REPORT RECEIVED FROM DESIREE SANCHEZ IN THE ER AT BEDSIDE.
[2024-09-01] MEDS ORDERED: LEVOTHYROXINE150 MCG PO (15:44)
--- NOTE | 2024-09-01 15:50 | NUR ---
PATIENT ARRIVED TO THE FLOOR AT THIS TIME. PATIENT VITAL SIGNS TAKEN AND DOCUMENTED IN THE CHART. BED BATH AND SHOWER CAP COMPLETE. EXCESS LINENS REMOVED. NEW PUREWICK PLACED AND JENNIFER CARE COMPLETE. PATIENT TOLERATED WELL.
[2024-09-01 15:55] VITALS: BP 139/77
[2024-09-01] MEDS ORDERED: LACTATED RINGER'S 1,000 ML IV ONE (16:30)
[2024-09-01] MEDS ORDERED: ACETAMINOPHEN 325 MG TAB PO PRN (16:30)
[2024-09-01] MEDS ORDERED: ondansetron HCL 4 MG/2 ML VIAL IV PRN (16:30)
--- NOTE | 2024-09-01 16:30 | NUR ---
PT IS IN THE ROOM AT THIS TIME AND WORKING WITH THE PATIENT.
--- NOTE | 2024-09-01 17:05 | NUR ---
PATIENT IS LYING IN BED WITH HOB ELEVATED. PATIENT COMPLAINED OF NAUSEA AFTER EATING A FEW BITES OF DINNER. NEW PUREWICK PLACED AT 1705. PRIMARY NURSE NOTIFIED OF NAUSEA. CALL LIGHT AND PERSONAL BELONGINGS ARE WITHIN REACH.
[2024-09-01 18:04] VITALS: BP 111/58
--- NOTE | 2024-09-01 18:10 | NUR ---
ADMISSION AND FULL ASSESSMENT COMPLETE AND DOCUMENTED IN THE CHART. PATIENT IS ALERT AND ORIENTED TIMES FOUR. LAST BM WAS 08/30/24 PER PATIENT REPORT. PATIENT HAS PT AND OT ORDERED. PATIENT WITH GENERALIZED WEAKNESS NOTED. PUREWICK IN PLACE AND WAS PUT IN AT 1700. 1L LR BOLUS IS INFUSING AT THIS TIME AND TO GO OVER ONE HOUR. SENSATION INTACT WITH NO COMPLAINTS OF NUMBNESS OR TINGLING. IV DRESSING IS CLEAN, DRY, AND INTACT. PATIENT IS ON A REGULAR DIET AND BOWEL TONES ARE ACTIVE IN ALL FOUR QUADRANTS. CARDIAC WITH NORMAL S1 AND S2 ON AUSCULTATION. RADIAL PULSES ARE STRONG BILATERALLY. PATIENT WITH FAINT PEDAL PULSES BILATERALLY. DEPENDENT EDEMA NOTED TO BLE. CAPILLARY REFILL IN THE UPPER AND LOWER EXTREMITIES IS LESS THAN 3 SECONDS. PATIENT IS ON ROOM AIR. PATIENT WITH CLEAR UPPER LOBES AND DIMINISHED BASES BILATERALLY. PATIENT WITH NO COMPLAINTS OF PAIN. PATIENT STATED NO FURTHER NEEDS AT THIS TIME. CALL LIGHT AND PERSONAL BELONGINGS ARE WITHIN REACH.
[2024-09-01 18:21] VITALS: BP 111/58
[2024-09-01 20:16] VITALS: BP 141/76
[2024-09-01 20:20] VITALS: BP 141/76
--- NOTE | 2024-09-01 20:26 | NUR ---
Awake, alert and oriented, watching tv. no c/o pain. On room air. Distant lung sounds at bases and hert sounds. Very obese. redness under breasts and abd pannus, dried and towels applied. pure wick in place. Generalized edema to hands. 2+ non pitting edema below knee to toes. Bruised L knee area noted. Repositioned, cooperative. fresh water given. SL RAC intat
--- NOTE | 2024-09-01 22:21 | NUR ---
C/O R KNEE PAIN, MEDICATED IWTH TYLENOL 650MG PO. ELEVATED WITH PILLOWS AND REPOSITIONED, SCDS IN PLACE
--- NOTE | 2024-09-01 22:58 | NUR ---
Turned down room temperature to 70 degrees at Pt request and provided cool compress due to Pt being too warm under blankets. No other needs expressed by Pt. Call light left in reach.
--- NOTE | 2024-09-01 23:41 | NUR ---
Resting, eyes closed, no s/sx ditress, repositions self in bed, no further c/o pain
[2024-09-02] VITALS (12 sets, daily range): BP systolic 100–118; BP diastolic 58–83
--- NOTE | 2024-09-02 01:42 | NUR ---
LANDSCAPE ARCHITECT AND PLANNER OBTAINED VITALS AND I&O. PT STATES NO NEEDS AT THIS TIME. CALL LIGHT WITHIN REACH.
--- NOTE | 2024-09-02 01:52 | NUR ---
awakens easily, cooperative with vitals nd assessments. no c/o pain. on room air. R leg elevated with pillows, purewick changed. drainingd tea colored urine. LE elevated
--- NOTE | 2024-09-02 05:16 | NUR ---
CHIEF VENDOR QUALITY OBTAINED VITALS AND I&O. PUREWICK CANNISTER EMPTIED. PT STATES NO NEEDS AT THSI TIME. CALL LIGHT WITHIN REACH.
--- NOTE | 2024-09-02 05:30 | NUR ---
awakens easily, cooperative with vitals and labs. No c/o pain. On room air. purewick in place, draining small amount below parameters UO. tea colored urine. tolerating sips of water. no emesis.
[2024-09-02 05:47] LABS: BASOPHILS 0.6 % (0-2); EOSINOPHILS 0.1 % (0-6); HEMATOCRIT 36.5 % (35.0-50.0); HEMOGLOBIN 12.8 g/dL (12.0-18.0); LYMPHOCYTES 8.4 % (24-44); MCH 29.8 (27-36); MCV 85.2 fl (81-99); MONOCYTES 4.6 % (0-12); NEUTROPHILS 86.3 % (39-80); PLATELET COUNT 141 K/uL (140-440); RBC 4.28 M/ul (4.3-5.7); RDW 13.9 (10.5-15.0)
[2024-09-02 05:58] LABS: ANION GAP 17.3 (7-21); BUN/CREATININE RATIO 8.16 (6.0-28.6); CALCIUM 8.6 mg/dL (8.5-10.1); CREATININE, SERUM 1.47 mg/dL (0.55-1.02); MAGNESIUM 2.3 mg/dL (1.8-2.4); POTASSIUM 4.3 mmol/L (3.5-5.1)
--- NOTE | 2024-09-02 07:20 | NUR ---
REPORT RECEIVED FROM CLINIC PHYSICIAN DIRECTOR RN LILIYA. PATIENT IS LYING IN BED WITH EYES CLOSED AND RESPIRATIONS ARE EVEN AND UNLABORED. CALL LIGHT AND PERSONAL BELONGINGS ARE WITHIN REACH.
--- NOTE | 2024-09-02 07:53 | NUR ---
PATIENT LYING IN BED WITH HOB ELEVATED. MORNING MEDICATIONS GIVEN PER EMAR. PATIENT EDUCATION PROVIDED AND PATIENT STATED UNDERSTANDING. PATIENT STATED NOT SLEEPING WELL, BUT IS IN GOOD SPIRITS. IV FLUSHED WITH 10ML NS, NO SIGNS OF INFILTRATION OR PAIN. PATIENT HAS CALL LIGHT AND PERSONAL BELONGINGS WITHIN REACH. PATIENT STATED NO FURTHER NEEDS.
--- NOTE | 2024-09-02 08:20 | NUR ---
PT TO CT THIS AM, SLOCKED FOR THIS AND ATTENDS INPLACE. PT TRANSPORTED VIA
--- NOTE | 2024-09-02 08:40 | NUR ---
PATIENT IS LYING IN BED WITH HOB ELEVATED. PATIENT WITH EYES OPEN AND RESPIRATIONS ARE EVEN AND UNLABORED. PATIENT IS WATCHING TV. IV SITE FLUSHED WITH 10 ML NORMAL SALINE AND IV ROCEPHIN DOSE RESTARTED. SOCKS REMOVED PER PATIENT REQUEST. THIS RN DELEGATED TO RAJEEV DOBSON TO PLACE PUREWICK AT THIS TIME. HISTORY TEACHER WITH NO FURTHER QUESTIONS. PATIENT STATED NO FURTHER NEEDS AT THIS TIME. CALL LIGHT AND PERSONAL BELONGINGS ARE WITHIN REACH.
[2024-09-02] MEDS ORDERED: CEFTRIAXONE SODIUM 1 GM in SODIUM CHLORIDE 0.9% 100 ML IV SCH (09:00)
[2024-09-02] MEDS ORDERED: LEVOTHYROXINE SODIUM 125 MCG TAB PO SCH (09:00)
[2024-09-02] MEDS ORDERED: ENOXAPARIN SODIUM 40 MG/0.4 ML SYR SUB-Q SCH (09:00)
[2024-09-02] MEDS ORDERED: PANTOPRAZOLE SODIUM 40 MG TABEC PO SCH (09:00)
[2024-09-02] MEDS ORDERED: FLUOXETINE HCL 20 MG CAP PO SCH (09:00)
--- NOTE | 2024-09-02 09:06 | NUR ---
PATIENT IS LYING IN BED WITH HOB ELEVATED. PATIENT WITH EYES OPEN AND RESPIRATIONS ARE EVEN AND UNLABORED. TV IS ON. PATIENT STATED HAVING THE "WORST MAXIMILIAN HORSE". PATIENT REPORTS THAT IT IS PRETTY MUCH GONE NOW AND DOES NOT WANT ANYTHING FOR PAIN AT THIS TIME. IV ROCEPHIN DOSE COMPLETE. IV FLUSHED WITH 10 ML NORMAL SALINE AND IS SALINE LOCKED. IV DRESSING IS CLEAN, DRY, AND INTACT. BREAKFAST TRAY SET UP ON THE BEDSIDE TABLE FOR THE PATIENT. PATIENT STATED NO FURTHER NEEDS AT THIS TIME. CALL LIGHT AND PERSONAL BELONGINGS ARE WITHIN REACH.
[2024-09-02] MEDS ORDERED: POLYETHYLENE GLYCOL 3350 1 PACKET PO ONE (10:00)
--- NOTE | 2024-09-02 10:14 | NUR ---
PATIENT IS ON THE TOILET WITH BILATERAL LOWER EXTREMITIES ON THE FLOOR. PATIENT AMBULATED TO THE RESTROOM WELL, SHE DENIED FEELING LIGHT-HEADED OR DIZZY. PATIENT COMPLAINED OF RIGHT LEG WEAKNESS AND SOME RIGHT KNEE PAIN. AFTER A BOWEL MOVEMENT SHE HAD A SCAB ON RIGHT BUTTOCK WITH SMALL AMOUNT OF BLEEDING NOTED. PRIMARY RN, COLETTE, NOTIFIED. PATIENT BACK TO BED WITH PUREWICK IN PLACE. PATIENT AMBULATED WELL AND FOLLOWED COMMANDS APPROPRIATELY. KIMBERLY BOO SAID BOWEL MOVEMENT WAS MEDIUM SIZE AND FORMED. CALL LIGHT AND PERSOAL BELONGINGS ARE WITHIN REACH. PATIENT DENIES FURTHER NEEDS AT THIS TIME.
--- NOTE | 2024-09-02 10:40 | NUR ---
PATIENT IS LYING IN BED WITH HOB ELEVATED. PATIENT SHIFT ASSESSMENT IN CHART. PATIENT IS ALERT AND ORIENTED TO ALL. PATIENT DENIES HEADACHE, DOUBLE VISION OR SENSITIVITY TO LIGHT. SENSTATIONS ARE INTACT AND PATIENT DENIES NUMBNESS OR TINGLING EXPECT WHEN SHE FIRST STANDS UP. PATIENT HAS ACTIVE BOWEL TONES, ABDOMEN IS NOT DISTENDED OR FIRM. PATIENT HAS NORMAL S1 & S2 HEART SOUNDS. PATIENT HAS STRONG RADIAL AND PEDAL PULSES. PATIENT HAS DEPENDENT BLE EDEMA, PATIENT HAS CAPILLARY REFILL OF LESS THAN 3 SECONDS. PATIENT IS ON ROOM AIR, LUNG SOUNDS ARE CLEAR IN THE UPPER LUNG LOBES AND DIMINISHED IN LOWER BASES. PATIENT HAS ANXIETY AND IS TAKING PROZAC. PATIENT HAS PUREWICK IN PLACE AND CONCENTRATED URINE. PATIENT HAD A BOWEL MOVEMENT EARLIER THIS MORNING AND REFUSED MIRALAX. PATIENT WITH NO COMPLAINTS OF PAIN OR NAUSEA. PATIENT IV SITE IS CLEAN, DRY, AND INTACT. IV SITE IS SALINE LOCKED. PATIENT HAS CALL LIGHT AND PERSONAL BELONGINGS WITHIN REACH.
--- NOTE | 2024-09-02 11:04 | NUR ---
PATIENT IS LYING IN BED WITH EYES CLOSED AND RESPIRATIONS ARE EVEN AND UNLABORED. TV IS ON. CALL LIGHT AND PERSONAL BELONGINGS ARE WITHIN REACH.
[2024-09-02] MEDS ORDERED: PHARMACY RENAL DOSE ADJUSTMENT 1 DOSE MISC PO SCH (12:00)
--- NOTE | 2024-09-02 12:00 | NUR ---
PATIENT IS LYING IN BED WITH HOB ELEVATED. PATIENT WITH EYES OPEN AND RESPIRATIONS ARE EVEN AND UNLABORED. PATIENT IS WATCHING TV. PATIENT STATED NO NEEDS AT THIS TIME. CALL LIGHT AND PERSONAL BELONGINGS ARE WITHIN REACH.
--- NOTE | 2024-09-02 13:32 | NUR ---
PATIENT IS SITTING IN THE CHAIR WITH BILATERAL LOWER EXTREMITIES ELEVATED. PATIENT WITH EYES CLOSED AND RESPIRATIONS ARE EVEN AND UNLABORED. PATIENT IS WATCHING TV. RAJEEV DOBSON IS IN THE ROOM AT THIS TIME. PATIENT STATED NO FURTHER NEEDS AT THIS TIME. CALL LIGHT AND PERSONAL BELONGINGS ARE WITHIN REACH.
--- NOTE | 2024-09-02 14:38 | NUR ---
MED REC COMPLETE
--- NOTE | 2024-09-02 14:46 | NUR ---
PATIENT LYING IN BED WITH HOB ELEVATED. IV SITE WAS FLUSHED WITH 10ML NS, THERE WERE NO SIGNS OF LEAKING OR INFILTRATION. PATIENT DENIED PAIN OR BURNING AT SITE. PATIENT IS ALERT AND ORIENTED TIME FOUR. PATIENT RATES PAIN AT 9/10 IN R. KNEE AND 7/10 IN BACK. PATIENT GIVEN TYLENOL PER EMAR. PATIENT ENCOURAGED TO WORK WITH PHYSICAL THERAPY AFTER PAIN MEDICATION STARTS WORKING. SHE WAS UPSET HER FAMILY HAD NO COME TO VISIT. PATIENT DENIED FURTHER NEEDS AT THIS TIME. CALL LIGHT AND PERSONAL BELONGINGS ARE WITHIN REACH.
--- NOTE | 2024-09-02 15:08 | NUR ---
PATIENT IS LYING IN BED WITH EYES CLOSED AND RESPIRATIONS ARE EVEN AND UNLABORED. TV IS ON. CALL LIGHT AND PERSONAL BELONGINGS ARE WITHIN REACH.
--- NOTE | 2024-09-02 16:35 | NUR ---
PATIENT IS LYING IN BED WITH HOB ELEVATED. PUREWICK WAS PLACED WITH HELP OF BRONSON BOO. VISITOR IN ROOM AT THIS TIME. PATIENT REQUESTING EMOTIONAL SUPPORT ANIMAL COME INSIDE AT THIS TIME. PRIMARY NURSE, COLETTE, NOTIFIED. CALL LIGHT AND PERSONAL BELONGINGS ARE WITHIN REACH.
--- NOTE | 2024-09-02 17:22 | NUR ---
PATIENT LYING IN BED WITH HOB ELEVATED. PATIENT'S PUREWICK WAS WHISTLING. PUREWICK DISCONNECTED AND RECONNECTED. PATIENT EDUCATED ABOUT A REALISTIC TIME LINE OF DISCHARGE. SHE WAS WANTING TO GO HOME TONIGHT. SHE NOW UNDERSTANDS IMPORTANCE OF GETTING MORE IV ANTIBIOTICS AND ENSURING SHE IS SAFE TO GO HOME. PATIENT DENIES FURTHER NEEDS AT THIS TIME. PATIENT BELONGINGS AND CALL LIGHT ARE WITHIN REACH.
--- NOTE | 2024-09-02 18:13 | NUR ---
PATIENT IS LYING IN BED WITH HOB ELEVATED. PATIENT IS WATCHING TV WITH EVEN UNLABORED RESPIRATIONS. CALL LIGHT AND PERSONAL BELONGINGS ARE WITHIN REACH.
--- NOTE | 2024-09-02 18:35 | NUR ---
PATIENT TRANSFERRED TO THE CHAIR WITH SBA. BED LINENS CHANGED AND A WAFFLE MATTRESS OVERLAY PLACED. RAJEEV DOBSON IS IN THE ROOM AT THIS TIME AND GETTING VITAL SIGNS AND INTAKE AND OUTPUT. PATIENT REPORTS NOT THINKING SHE WILL BE ABLE TO SIT UP IN THE CHAIR VERY LONG. RN EDUCATED PATIENT TO CALL WHEN SHE IS READY TO GET BACK IN BED. PATIENT EXPRESSED UNDERSTANDING. PATIENT STATED NO FURTHER NEEDS AT THIS TIME. CALL LIGHT AND PERSONAL BELONGINGS ARE WITHIN REACH.
--- NOTE | 2024-09-02 20:13 | NUR ---
On room air, no c/o sob, helps with repositioning. Lungs clear bilat dim at bases, cardiac sounds distant, very obese, abd katalina, LBM 09/02. redness under breast, abd arun area pannus. skin care and dry towels applied. Pure wick in place, draining cloudy colored yellow urine. pure wick changed. edema to hands and 2+ edema LE, elevated. R knee edema, elevated in pillows. Cooperative
--- NOTE | 2024-09-02 23:07 | NUR ---
Pt staesd, "I want to go home, I want to dc myself". "My back hurts, thet chair was not vomfortable either, I usually sleep in my recliner chair at home, my daughter here is driving me crazy". Talked to pt, pros and cons of leaving AMA, the meds she is taking to help with infection and inflamation, reassured, "oh ok I will try and stay then". Will notify MD and will continue to reassure pt
--- NOTE | 2024-09-03 00:31 | NUR ---
eyes closed, no s/sx distress. reposition self. family in room
--- NOTE | 2024-09-03 02:20 | NUR ---
Resting, no s/sx distress, On room air. purewqick in place. family member rooming in
--- NOTE | 2024-09-03 04:07 | NUR ---
Resting, eyes closed, no s/sx ditress, repositions self in bed. pure wick in place draining tea colored urine. family rooming in
--- NOTE | 2024-09-03 05:37 | NUR ---
Awakens easily, declined lab draws at this time. On room air. c/o R knee and back pain, medicated with Tylenol 650mg.. repositions self in bed. pure wick changed. voiding QS
[2024-09-03 06:52] LABS: BASOPHILS 0.6 % (0-2); EOSINOPHILS 0.1 % (0-6); HEMATOCRIT 34.2 % (35.0-50.0); HEMOGLOBIN 11.9 g/dL (12.0-18.0); LYMPHOCYTES 7.9 % (24-44); MCH 29.7 (27-36); MCHC 34.8 g/dl (30-36); MCV 85.5 fl (81-99); MONOCYTES 5.9 % (0-12); NEUTROPHILS 85.5 % (39-80); PLATELET COUNT 157 K/uL (140-440); RDW 14.1 (10.5-15.0)
[2024-09-03 07:01] LABS: ANION GAP 12.3 (7-21); BUN/CREATININE RATIO 11.03 (6.0-28.6); CALCIUM 8.4 mg/dL (8.5-10.1); CREATININE, SERUM 1.54 mg/dL (0.55-1.02); MAGNESIUM 2.6 mg/dL (1.8-2.4); POTASSIUM 4.3 mmol/L (3.5-5.1)
--- NOTE | 2024-09-03 07:05 | NUR ---
REPORT RECEIVED FROM CIVIL TRANSPORTATION ENGINEER RN LILIYA. PATIENT IS LYING IN BED WITH HOB ELEVATED. PATIENT WITH EYES OPEN AND RESPIRATIONS ARE EVEN AND UNLABORED. PATIENT DAUGHTER IS LYING ON THE COUCH. PATIENT STATED NO NEEDS AT THIS TIME. CALL LIGHT AND PERSONAL BELONGINGS ARE WITHIN REACH.
--- NOTE | 2024-09-03 08:12 | NUR ---
PATIENT IN BED AT THIS TIME. LINE PREP COOK CHARTED HOURLY ROUNDS. CALL LIGHT WITHIN REACH, NO FURTHER NEEDS AT THIS TIME.
--- NOTE | 2024-09-03 08:24 | NUR ---
PATIENT IS LYING IN BED WITH HOB ELEVATED. DR. BARBER IN WITH PATIENT. PATIENT IS ASKING TO GO HOME. PRIMARY RN IS PRESENT AT BEDSIDE. CALL LIGHT AND PERSONAL BELONGINGS ARE WITHIN REACH.
--- NOTE | 2024-09-03 08:29 | NUR ---
IV ROCEPHIN COMPLETE. IV FLUSHED WITH 10 ML NORMAL SALINE AND IS SALINE LOCKED. IV DRESSING IS CLEAN, DRY, AND INTACT. PATIENT WITH DAUGHTER LYING ON THE COUCH. PATIENT STATED NO FURTHER NEEDS AT THIS TIME. CALL LIGHT AND PERSONAL BELONGINGS ARE WITHIN REACH.
--- NOTE | 2024-09-03 09:12 | NUR ---
PATIENT IS LYING IN BED WITH HOB ELEVATED. PATIENT IS REPORTING "A LITTE BIT OF BACK PAIN", THEN RATED PAIN 7.5/10. PATIENT IS NOT REQUESTING PAIN MEDICATIONS. CALL LIGHT AND PERSONAL BELONGINGS ARE WITHIN REACH. PATIENT DENIES FURTHER NEEDS AT THIS TIME. BREAKFAST TRAY TAKEN.
[2024-09-03 09:19] VITALS: BP 113/54
--- NOTE | 2024-09-03 10:10 | NUR ---
PATIENT IS WORKING WITH PHYSICAL THERAPY AT THIS TIME AND IN THE PHYSICAL THERAPY ROOM AT THIS TIME.
[2024-09-03 10:40] VITALS: BP 113/54
--- NOTE | 2024-09-03 10:50 | NUR ---
PATIENT IS LYING IN BED WITH HOB ELEVATED. PATIENT ASSESSMENT DOCUMENTED IN THE CHART. PATIENT IS ALERT AND ORIENTED TIMES FOUR. HEART SOUNDS NORMAL S1 & S2. PATIENT HAS CAPILLARY REFILL LESS THAN 3 SECONDS. PATIENT HAS STRONG RADIAL AND PEDAL PULSES. PATIENT HAS DEPENDENT EDEMA IN BLE. PATIENT HAS CLEAR LUNG SOUNDS IN UPPER LOBES AND DIMINISHED IN THE BABES. PATIENT HAS ACTIVE BOWEL TONES IN ALL FOUR QUADRANTS. PATIENT DENIES TENDERNESS WITH PALPATION AND IS NOT FIRM. PATIENT'S LAST BM WAS 09/02/2024. PATIENT HAS REDDENED SKIN UNDER LEFT BREAST, THROUGHOUT THE PANNUS AND IN THE GROIN. PATIENT HAS PAPER TOWELS BETWEEN THE SKIN FOLDS TO LIMIT MOISTURE BREAKDOWN/IRRITATION. PATIENT HAS PUREWICK IN PLACE, CHANGED THIS MORNING. PATIENT RATED PAIN 5/10 IN LOWER BACK. PATIENT IS NOT REQUESTING ANYTHING FOR SHE DENIED R. KNEE PAIN, EVEN AFTER PT. SHE REQUESTED DISCHARGE TODAY. PATIENT IS IN A BETTER MOOD NOW THAN THIS MORNING. PATIENT HAS VISITOR IN ROOM WITH HER AT THIS TIME. ROUNDED ON THE PATIENT AT THIS TIME. IV SITE IS SALINE LOCKED. IV DRESSING IS CLEAN, DRY, AND INTACT. PATIENT STATED NO FURTHER NEEDS AT THIS TIME. CALL LIGHT AND PERSONAL BELONGINGS ARE WITHIN REACH.
[2024-09-03] MEDS ORDERED: MACROBID 100 M100 MG PO (11:03)
--- NOTE | 2024-09-03 11:05 | NUR ---
PATIENT IN BED AT THIS TIME. FRUIT HARVESTER PLACED NEW PUREWICK AT 1028. CALL LIGHT WITHIN REACH, NO FURTHER NEEDS AT THIS TIME.
--- NOTE | 2024-09-03 11:33 | NUR ---
PATIENT IS LYING IN BED WITH EYES CLOSED AND RESPIRATIONS ARE EVEN AND UNLABORED. PATIENT WITH THE LIGHTS OFF IN THE ROOM. PATIENT WITH HER DAUGHTER LYING ON THE COUCH. CALL LIGHT AND PERSONAL BELONGINGS ARE WITHIN REACH.
--- NOTE | 2024-09-03 12:30 | NUR ---
PATIENT IS SITTING UPRIGHT IN BED WITH HOB ELEVATED. PATIENT WITH EYES OPEN AND RESPIRATIONS ARE EVEN AND UNLABORED. PERSONAL BELONGINGS GATHERED.IV SITE REMOVED WITH THE CATHETER TIP INTACT. PATIENT EDUCATED HOW TO CARE FOR THE SITE. DISCHARGE INSTRUCTIONS AND DISCHARGE EDUCATION REVIEWED WITH PATIENT WITH RITCHIE, STUDENT NURSE. PATIENT STATED HER SON WOULD BE BACK SOON WITH CLOTHES. PATIENT STATED SHE WOULD CALL WHEN HE WAS BACK. PATIENT SIGNED THE DISCHARGE FORM. VITAL SIGNS TAKEN. PATIENT STATED NO FURTHER NEEDS AT THIS TIME. CALL LIGHT AND PERSONAL BELONGINGS ARE WITHIN REACH.
[2024-09-03] MEDS ORDERED: HYDROCORTISONE 10 MG TAB PO SCH (16:00)
[2024-09-04] MEDS ORDERED: HYDROCORTISONE 10 MG TAB PO SCH (08:00)
== END 2024-09-03 13:00 | disposition home or self-care (01) | DRG 690 ==
LOC: ED 09:25 → MS 09:27
PROVIDERS: Emergency Medicine; ADMIT Student in an Organized Health Care Education/Training Program; ATTEND Student in an Organized Health Care Education/Training Program
DX: N39.0 Urinary tract infection, site not specified (principal); E27.49 Other adrenocortical insufficiency; E03.9 Hypothyroidism, unspecified; K21.9 Gastro-esophageal reflux disease without esophagitis; F39 Unspecified mood [affective] disorder; K59.00 Constipation, unspecified; E66.01 Morbid (severe) obesity due to excess calories; Z85.528 Personal history of other malignant neoplasm of kidney; Z86.19 Personal history of other infectious and parasitic diseases; G62.9 Polyneuropathy, unspecified; M19.90 Unspecified osteoarthritis, unspecified site; Z87.891 Personal history of nicotine dependence; Z90.721 Acquired absence of ovaries, unilateral; Z98.890 Other specified postprocedural states; Z90.5 Acquired absence of kidney; Z79.899 Other long term (current) drug therapy; Z79.890 Hormone replacement therapy
CPT/HCPCS: 36415; 70450; 71250; 73560; 74176; 80048; 80053; 81001; 83605; 83735; 83880; 85025; 85610; 85730; 87088; A9270; J0696; J1650; J1720; J2405; J3010; J7040; J7121

== ENCOUNTER 2024-12-05 23:54 | Emergency (ER) | payer OTHER ==
[~2024-12-05] VITALS: Ht 165.1 cm; Wt 109.5 kg
[~2024-12-05 23:54] MED LIST changes: +LEVOTHYROXINE150 MCG PO; +MACROBID 100 M100 MG PO
[2024-12-06] MEDS ORDERED: SODIUM CHLORIDE 0.9% 1,000 ML IV SCH (00:30)
[2024-12-06 00:45] LABS: BASOPHILS 1.0 % (0.1-1.2); EOSINOPHILS 4.8 % (0.7-5.8); LYMPHOCYTES 33.7 % (19.3-51.7); MCH 28.8 PG (25.6-32.2); MCHC 33.3 g/dL (32.2-35.5); MCV 86.5 fL (79.4-94.8); MONOCYTES 9.9 % (4.7-12.5); NEUTROPHILS 50.4 % (34.0-71.1); RBC 4.44 M/uL (3.93-5.22)
[2024-12-06 00:59] LABS: ALT (SGPT) 23.0 U/L (14-59); AST (SGOT) 42.0 U/L (15-37); GLOMERULAR FILTRATION RATE,EST 46.0 mL/min (>60); PROTEIN, TOTAL 7.0 g/dL (6.4-8.2); UREA NITROGEN 11.0 mg/dL (7-18)
[2024-12-06] MEDS ORDERED: ONDANSETRON ODT8 MG PO (01:15)
[2024-12-06] MEDS ORDERED: ONDANSETRON 4 MG HOME.PACK SL ONE (01:15)
[2024-12-06 01:27] VITALS: BP 103/59
--- NOTE | 2024-12-07 20:17 | EKG ---
[facility] [address] [facility] [place] [address] Signed Normal sinus rhythm ST \T\ T wave abnormality, consider anterolateral ischemia Prolonged QT Abnormal ECG When compared with ECG of 11-MAR-2023 11:46, Nonspecific T wave abnormality now evident in Inferior leads T wave inversion now evident in Anterolateral leads Confirmed by Sidney Cohen MD () on 12/07/2024 8:16:55 PM Electronically Signed By: SIDNEY COHEN MD 12/07/242016 PATIENT NAME: BRONSON MARTÍNEZ Electrocardiogram DATE OF : 68 PHYSICIAN: SIDNEY COHEN MD REPORT #: [id number] REPORT IS CONFIDENTIAL AND NOT TO BE RELEASED WITHOUT AUTHORIZATION
== END 2024-12-06 01:28 | disposition left against medical advice (07) ==
LOC: ED 23:54
PROVIDERS: Emergency Medicine
DX: S09.90XA Unspecified injury of head, initial encounter (principal); R11.2 Nausea with vomiting, unspecified; M19.90 Unspecified osteoarthritis, unspecified site; E03.9 Hypothyroidism, unspecified; W01.0XXA Fall on same level from slipping, tripping and stumbling without subsequent striking against object, initial encounter; Z79.899 Other long term (current) drug therapy; Z87.891 Personal history of nicotine dependence
CPT/HCPCS: 36415; 80053; 85025; 93005; 93010; 96374; 99284-25; A9270; J2405; J7030

== ENCOUNTER 2025-01-02 14:56 | Emergency (ER) | payer OTHER ==
[~2025-01-02] VITALS: Ht 165.1 cm; Wt 129.7 kg
[~2025-01-02 14:56] MED LIST changes: +CEFDINIR300 MG PO; +PROSHIELD PLUS113 GM TOP; +PYRIDIUM200 MG PO
[2025-01-02 15:14] LABS: BASOPHILS 1.1 % (0.1-1.2); EOSINOPHILS 4.1 % (0.7-5.8); LYMPHOCYTES 32.3 % (19.3-51.7); MCH 29.3 PG (25.6-32.2); MCHC 34.1 g/dL (32.2-35.5); MCV 86.0 fL (79.4-94.8); MONOCYTES 11.8 % (4.7-12.5); NEUTROPHILS 50.2 % (34.0-71.1); RBC 4.64 M/uL (3.93-5.22)
[2025-01-02] MEDS ORDERED: SODIUM CHLORIDE 0.9% 500 ML IV ONE (15:15)
[2025-01-02 15:30] LABS: ALT (SGPT) 17.0 U/L (14-59); AST (SGOT) 45.0 U/L (15-37); GLOMERULAR FILTRATION RATE,EST 53.0 mL/min (>60); PROTEIN, TOTAL 7.3 g/dL (6.4-8.2); UREA NITROGEN 7.0 mg/dL (7-18)
[2025-01-02] MEDS ORDERED: KETOROLAC TROMETHAMINE 15 MG/ML VIAL IV ONE (15:45)
[2025-01-02] MEDS ORDERED: HYDROmorphone HCL 1 MG/ML SYR IV PRN (15:45)
[2025-01-02 17:28] LABS: BLOOD/HGB, URINE TRACE-L (Negative); KETONE, URINE NEGATIVE (Negative); LEUK ESTERASE, URINE NEGATIVE (negative); NITRITE, URINE NEGATIVE (negative)
[2025-01-02 17:39] LABS: CRYSTALS, URINE NONE SEEN (0-1+); EPITHELIAL CELLS, URINE SQUAMOUS 3+ /lpf (0-1+)
[2025-01-02 17:40] LABS: BACTERIA, URINE NONE SEEN /hpf (negative); CASTS, URINE NONE SEEN \\lpf; REFLEX CULTURE, URINE No (No)
[2025-01-02] MEDS ORDERED: ONDANSETRON ODT4 MG PO (18:38)
[2025-01-02] MEDS ORDERED: HYDROCODON-ACE1 EA10 PO (18:38)
[2025-01-02] MEDS ORDERED: HYDROmorphone HCL 1 MG/ML SYR IV ONE (19:45)
[2025-01-02 20:44] VITALS: BP 105/50
== END 2025-01-02 20:45 | disposition home or self-care (01) ==
LOC: ED 14:56
PROVIDERS: Emergency Medicine
DX: R10.9 Unspecified abdominal pain (principal); E03.9 Hypothyroidism, unspecified; M19.90 Unspecified osteoarthritis, unspecified site; Z79.899 Other long term (current) drug therapy; Z87.891 Personal history of nicotine dependence
CPT/HCPCS: 36415; 76705; 80053; 81001; 83735; 84703; 85025; 96361; 96374; 96375; 96376; 99284-25; J1171; J1885; J2405; J7040

== ENCOUNTER 2025-01-06 09:46 | Emergency (ER) | payer OTHER ==
[~2025-01-06] VITALS: Ht 165.1 cm; Wt 112.8 kg
[~2025-01-06 09:46] MED LIST changes: +ONDANSETRON ODT4 MG PO
[2025-01-06] MEDS ORDERED: PHENAZOPYRIDIN200 MG PO (10:10)
[2025-01-06 10:51] LABS: BLOOD/HGB, URINE TRACE-I (Negative); KETONE, URINE NEGATIVE (Negative); LEUK ESTERASE, URINE NEGATIVE (negative); NITRITE, URINE NEGATIVE (negative)
[2025-01-06 10:57] LABS: BACTERIA, URINE NONE SEEN /hpf (negative); CASTS, URINE NONE SEEN \\lpf; CRYSTALS, URINE NONE SEEN (0-1+); EPITHELIAL CELLS, URINE SQUAMOUS 1+ /lpf (0-1+); REFLEX CULTURE, URINE No (No)
[2025-01-06 11:08] LABS: AMPHETAMINES, URINE NEGATIVE (NEGATIVE); BARBITURATES, URINE NEGATIVE (NEGATIVE); BENZODIAZEPINE, URINE NEGATIVE (NEGATIVE); CANNABINOID, URINE NEGATIVE (NEGATIVE); COCAINE, URINE NEGATIVE (NEGATIVE); ECSTASY, URINE NEGATIVE (NEGATIVE); FENTANYL, URINE NEGATIVE (NEGATIVE); METHADONE, URINE NEGATIVE (NEGATIVE); OPIATES, URINE NEGATIVE (NEGATIVE); OXYCODONE, URINE NEGATIVE (NEGATIVE); PHENCYCLIDINE, URINE NEGATIVE (NEGATIVE)
[2025-01-06 11:26] LABS: BASOPHILS 0.9 % (0.1-1.2); EOSINOPHILS 3.4 % (0.7-5.8); LYMPHOCYTES 22.2 % (19.3-51.7); MCH 29.2 PG (25.6-32.2); MCHC 33.3 g/dL (32.2-35.5); MCV 87.5 fL (79.4-94.8); MONOCYTES 6.8 % (4.7-12.5); NEUTROPHILS 66.1 % (34.0-71.1); RBC 4.15 M/uL (3.93-5.22)
[2025-01-06 11:46] LABS: ALCOHOL, MEDICAL <3 ng/dL (<3); ALT (SGPT) 15 U/L (14-59); AST (SGOT) 34 U/L (15-37); GLOMERULAR FILTRATION RATE,EST 59 mL/min (>60); PROTEIN, TOTAL 6.7 g/dL (6.4-8.2); TSH, 3RD GENERATION 10.107 uIU/mL (0.358-3.740); UREA NITROGEN 6 mg/dL (7-18)
[2025-01-06] MEDS ORDERED: ANTIFUNGAL113 GM TOP (12:18)
[2025-01-06 12:47] VITALS: BP 120/71
== END 2025-01-06 13:27 | disposition home or self-care (01) ==
LOC: ED 09:46
PROVIDERS: Emergency Medicine
DX: B37.2 Candidiasis of skin and nail (principal); E03.9 Hypothyroidism, unspecified; R73.03 Prediabetes; E66.01 Morbid (severe) obesity due to excess calories; Z87.891 Personal history of nicotine dependence; Z79.899 Other long term (current) drug therapy; Z79.890 Hormone replacement therapy
CPT/HCPCS: 36415; 80053; 80307; 81001; 84439; 84443; 85025; 99283; G0480

== ENCOUNTER 2025-01-09 21:34 | Emergency (ER) | payer OTHER ==
[~2025-01-09] VITALS: Ht 165.1 cm; Wt 112.8 kg
[~2025-01-09 21:34] MED LIST changes: +ANTIFUNGAL113 GM TOP; +PHENAZOPYRIDIN200 MG PO
[2025-01-09] MEDS ORDERED: MINERAL OIL 133 ML BTL PR ONE (23:45)
[2025-01-10] MEDS ORDERED: LACTULOSE10 GM/15 M PO (00:20)
[2025-01-10 00:30] VITALS: BP 106/55
== END 2025-01-10 00:30 | disposition home or self-care (01) ==
LOC: ED 21:34
DX: K59.00 Constipation, unspecified (principal); E03.9 Hypothyroidism, unspecified; R73.03 Prediabetes; E66.9 Obesity, unspecified; Z68.41 Body mass index [BMI] 40.0-44.9, adult; Z87.891 Personal history of nicotine dependence; Z79.890 Hormone replacement therapy; Z79.899 Other long term (current) drug therapy
CPT/HCPCS: 74018; 99283